=== PATIENT | female | born 1975 | race Asian ===

== ENCOUNTER 2017-12-24 14:07 | Emergency (ER) | payer OTHER ==
[~2017-12-24] VITALS: Ht 165.1 cm; Wt 63.6 kg
[~2017-12-24 14:07] MED LIST: ARIP10TA8 PO; METF-445 PO
[2017-12-24 14:38] LABS: GLUCOSE,POINT OF CARE 428 MG/DL (70-110)
[2017-12-24] MEDS ORDERED: SODIUM CHLORIDE 0.9% 1,000 ML IV ONE ×2 (14:45)
[2017-12-24 15:05] LABS: BASOPHILS % (AUTO) 0.9 % (0.0-2.0); EOSINOPHILS % (AUTO) 2.3 % (1.0-6.0); HEMATOCRIT 41.3 % (36-46); HEMOGLOBIN 14.2 g/dL (12.0-16.0); LYMPHOCYTES # (AUTO) 2.8 K/uL (1.0-4.8); LYMPHOCYTES % (AUTO) 27.2 % (22.0-44.0); MEAN CORPUSCULAR HEMOGLOBIN 28.4 pg (26.0-34.0); MEAN CORPUSCULAR HGB CONC 34.5 G/dL (31.0-37.0); MEAN CORPUSCULAR VOLUME 82 fL (80-100); MONOCYTES # (AUTO) 0.5 K/uL (0.1-1.0); MONOCYTES % (AUTO) 5.2 % (2.0-9.0); NEUTROPHILS # (AUTO) 6.6 K/uL (1.8-7.7); NEUTROPHILS % (AUTO) 64.4 % (40.0-70.0); PLATELET COUNT (AUTO) 343 K/uL (150-450); RED BLOOD CELL COUNT(AUTO) 5.01 MIL/uL (4.00-5.20); RED CELL DISTRIBUTION WIDTH 13.3 % (11.5-14.5)
[2017-12-24 15:27] LABS: LACTIC ACID 1.7 mmol/L (0.4-2.0)
[2017-12-24 15:41] LABS: ALANINE AMINOTRANSFERASE 14 U/L (12-78); ALBUMIN 3.1 g/dL (3.4-5.0); ALKALINE PHOSPHATASE 116 U/L (46-116); ANION GAP 7 mmol/L (8-16); ASPARTATE AMINOTRANSFERASE 12 U/L (15-37); BILIRUBIN,TOTAL 0.6 mg/dL (0.1-1.0); CALCIUM, TOTAL 8.7 mg/dL (8.8-10.5); CARBON DIOXIDE 26 mmol/L (22-29); CHLORIDE 96 mmol/L (98-107); CREATININE 0.82 mg/dL (0.60-1.30); GLOMERULAR FILTR. RATE CALC > 60 mL/min (>60); HCG,QUANTITATIVE < 1 mIU/mL (0-6); LIPASE 127 U/L (73-393); POTASSIUM 3.9 mmol/L (3.5-5.1); SODIUM SERUM 129 mmol/L (136-145); TOTAL PROTEIN, SERUM 7.9 g/dL (6.4-8.2); UREA NITROGEN, BLOOD 7 mg/dL (7-18)
[2017-12-24 15:44] LABS: GLUCOSE,RANDOM 401 mg/dL (70-110)
[2017-12-24 18:08] LABS: GLUCOSE,POINT OF CARE 229 MG/DL (70-110)
[2017-12-24 18:21] LABS: APPEARANCE,URINE CLOUDY (CLEAR); BILIRUBIN,URINE NEGATIVE (NEGATIVE); GLUCOSE, URINE (UA) >=1000 mg/dL (NEGATIVE); KETONES,URINE NEGATIVE (NEGATIVE); LEUKOCYTE ESTERASE ,URINE SMALL (NEGATIVE); NITRATE,URINE POSITIVE (NEGATIVE); OCCULT BLOOD,URINE TRACE (NEGATIVE); PH,URINE 5.5 (5.0-8.0); PROTEIN,URINE NEGATIVE (NEGATIVE); UROBILINOGEN,URINE 0.2 mg/dL (<=1.0)
[2017-12-24 18:44] LABS: BACTERIA,URINE Many /HPF (None Seen)
[2017-12-24 18:45] LABS: RBC,URINE 0-2 /HPF (0-2); SQUAMOUS EPITHELIAL CELL,UR Few /LPF (None Seen)
[2017-12-24] MEDS ORDERED: CeFAZolin 1 GM/DEXTROSE 50 ML IV ONE (19:00)
[2017-12-24 19:41] VITALS: BP 105/72
== END 2017-12-24 19:54 | disposition home or self-care (01) ==
LOC: EMS 14:08
DX: E11.65 Type 2 diabetes mellitus with hyperglycemia (principal); N39.0 Urinary tract infection, site not specified; I10 Essential (primary) hypertension; F31.9 Bipolar disorder, unspecified; F20.9 Schizophrenia, unspecified; F17.210 Nicotine dependence, cigarettes, uncomplicated; Z79.84 Long term (current) use of oral hypoglycemic drugs; Z79.899 Other long term (current) drug therapy
CPT/HCPCS: 36415; 80053; 81001; 82009; 82962; 83605; 83690; 84702; 85025; 87077; 87086; 87186; 93005; 96361; 96374; 99285; J0690; J7030

== ENCOUNTER 2018-12-17 22:15 | Emergency (ER) | payer OTHER ==
[~2018-12-17] VITALS: Ht 162.6 cm; Wt 63.1 kg
[2018-12-17] MEDS ORDERED: PROPARACAINE HCL 0.5% 15 ML OPHTHALMIC SOLUTION OU ONE (23:45)
[2018-12-17 23:52] LABS: BASOPHILS % (AUTO) 1.6 % (0.0-2.0); HEMATOCRIT 40.4 % (36-46); HEMOGLOBIN 13.5 g/dL (12.0-16.0); LYMPHOCYTES # (AUTO) 2.3 K/uL (1.0-4.8); LYMPHOCYTES % (AUTO) 28.3 % (22.0-44.0); MEAN CORPUSCULAR HEMOGLOBIN 27.7 pg (26.0-34.0); MEAN CORPUSCULAR HGB CONC 33.4 G/dL (31.0-37.0); MEAN CORPUSCULAR VOLUME 83 fL (80-100); MONOCYTES # (AUTO) 0.4 K/uL (0.1-1.0); MONOCYTES % (AUTO) 5.5 % (2.0-9.0); NEUTROPHILS % (AUTO) 62.6 % (40.0-70.0); PLATELET COUNT (AUTO) 423 K/uL (150-450); RED BLOOD CELL COUNT(AUTO) 4.87 MIL/uL (4.00-5.20); RED CELL DISTRIBUTION WIDTH 13.1 % (11.5-14.5)
[2018-12-18 00:20] LABS: ANION GAP 7 mmol/L (8-16); CARBON DIOXIDE 29 mmol/L (22-29); CHLORIDE 101 mmol/L (98-107); POTASSIUM 4.2 mmol/L (3.5-5.1); SODIUM SERUM 137 mmol/L (136-145)
[2018-12-18 00:22] LABS: ALANINE AMINOTRANSFERASE 9 U/L (12-78); ALKALINE PHOSPHATASE 116 U/L (46-116); ASPARTATE AMINOTRANSFERASE 10 U/L (15-37); BILIRUBIN,TOTAL 0.3 mg/dL (0.1-1.0); CALCIUM, TOTAL 8.6 mg/dL (8.8-10.5); CREATININE 0.66 mg/dL (0.60-1.30); GLOMERULAR FILTR. RATE CALC > 60 mL/min (>60); GLUCOSE,RANDOM 448 mg/dL (70-110); TOTAL PROTEIN, SERUM 7.4 g/dL (6.4-8.2); UREA NITROGEN, BLOOD 7 mg/dL (7-18)
[2018-12-18 00:23] LABS: ALBUMIN 2.8 g/dL (3.4-5.0)
[2018-12-18 00:30] LABS: HCG,QUANTITATIVE < 1 mIU/mL (0-6)
[2018-12-18] MEDS ORDERED: INSULIN REGULAR, HUMAN 100 UNITS/ML IVP ONE ×2 (00:30→03:30)
[2018-12-18] MEDS ORDERED: SODIUM CHLORIDE 0.9% 1,000 ML IV ONE ×2 (00:30→02:30)
[2018-12-18] MEDS ORDERED: FLUORESCEIN SODIUM 1 MG STRIP ONE (02:25)
[2018-12-18 03:31] LABS: GLUCOSE,POINT OF CARE 286 MG/DL (70-110)
[2018-12-18 03:31] LABS: GLUCOSE,POINT OF CARE 295 MG/DL (70-110)
[2018-12-18] MEDS ORDERED: CEPHALEXIN MONOHYDRATE 500 MG CAPSULE PO ONE (04:00)
[2018-12-18] MEDS ORDERED: ERYTHROMYCIN 0.5% 3.5 GM TUBE OPHTHALMIC OINTMENT OU ONE (04:00)
[2018-12-18] MEDS ORDERED: SULFAMETHOX/TRIMETH DS 800-160 MG/TABLET PO ONE (04:00)
[2018-12-18 04:07] LABS: GLUCOSE,POINT OF CARE 193 MG/DL (70-110)
[2018-12-18 04:09] VITALS: BP 105/70
== END 2018-12-18 04:20 | disposition home or self-care (01) ==
LOC: EMS 22:16
DX: H10.33 Unspecified acute conjunctivitis, bilateral (principal); H01.004 Unspecified blepharitis left upper eyelid; H01.001 Unspecified blepharitis right upper eyelid; E11.65 Type 2 diabetes mellitus with hyperglycemia; F20.9 Schizophrenia, unspecified; F17.210 Nicotine dependence, cigarettes, uncomplicated; F31.9 Bipolar disorder, unspecified
CPT/HCPCS: 36415; 80053; 82962; 84702; 85025; 96361; 96374; 96376; 99173; 99283; G0480; J1815; J7030

== ENCOUNTER 2019-08-10 09:43 | Inpatient (IN) | payer OTHER ==
[~2019-08-10] VITALS: Ht 162.6 cm; Wt 56.8 kg
[2019-08-10] MEDS ORDERED: DiphenhydrAMINE HCL 50 MG/ML VIAL IM ONE (11:30)
[2019-08-10] MEDS ORDERED: HALOPERIDOL LACTATE 5 MG/ML VIAL IM ONE (11:30)
[2019-08-10] MEDS ORDERED: LORazepam 2 MG/ML VIAL IM ONE (11:30)
[2019-08-10] MEDS ORDERED: ACETAMINOPHEN 325 MG TABLET PO PRN (12:45)
[2019-08-10] MEDS ORDERED: SODIUM CHLORIDE 0.9% 1,000 ML IV ONE (12:45)
[2019-08-10 13:36] LABS: BASOPHILS % (AUTO) 0.5 % (0.0-2.0); EOSINOPHILS % (AUTO) 1.8 % (1.0-6.0); HEMATOCRIT 35.2 % (36-46); HEMOGLOBIN 11.8 g/dL (12.0-16.0); LYMPHOCYTES # (AUTO) 2.2 K/uL (1.0-4.8); LYMPHOCYTES % (AUTO) 16.6 % (22.0-44.0); MEAN CORPUSCULAR HEMOGLOBIN 27.5 pg (26.0-34.0); MEAN CORPUSCULAR HGB CONC 33.7 G/dL (31.0-37.0); MEAN CORPUSCULAR VOLUME 82 fL (80-100); MONOCYTES # (AUTO) 0.7 K/uL (0.1-1.0); MONOCYTES % (AUTO) 5.4 % (2.0-9.0); NEUTROPHILS # (AUTO) 10.1 K/uL (1.8-7.7); NEUTROPHILS % (AUTO) 75.7 % (40.0-70.0); PLATELET COUNT (AUTO) 313 K/uL (150-450); RED BLOOD CELL COUNT(AUTO) 4.31 MIL/uL (4.00-5.20); RED CELL DISTRIBUTION WIDTH 14.6 % (11.5-14.5)
[2019-08-10 13:52] LABS: ANION GAP 7 mmol/L (8-16); CALCIUM, TOTAL 8.4 mg/dL (8.8-10.5); CARBON DIOXIDE 26 mmol/L (22-29); CHLORIDE 103 mmol/L (98-107); CREATININE 0.73 mg/dL (0.60-1.30); GLOMERULAR FILTR. RATE CALC > 60 mL/min (>60); GLUCOSE,RANDOM 221 mg/dL (70-110); POTASSIUM 3.8 mmol/L (3.5-5.1); SODIUM SERUM 136 mmol/L (136-145); UREA NITROGEN, BLOOD 5 mg/dL (7-18)
[2019-08-10 14:30] LABS: ALANINE AMINOTRANSFERASE 14 U/L (12-78); ALBUMIN 2.9 g/dL (3.4-5.0); ALKALINE PHOSPHATASE 95 U/L (46-116); ASPARTATE AMINOTRANSFERASE 13 U/L (15-37); BILIRUBIN,TOTAL 0.5 mg/dL (0.1-1.0); HCG,QUANTITATIVE < 1 mIU/mL (0-6); THYROID STIMULATING HORMONE 0.91 uIU/mL (0.36-3.74); TOTAL PROTEIN, SERUM 7.7 g/dL (6.4-8.2)
[2019-08-10] MEDS: HEPARIN SODIUM,PORCINE 5,000 UNITS/ML VIAL SQ SCH (15:54)
[2019-08-10] MEDS ORDERED: DEXTROSE 50%-WATER 25 GM/50 ML SYRINGE IVP PRN (18:45)
[2019-08-10 18:51] LABS: AMPHET/METH SCREEN,URINE POSITIVE (NEGATIVE); APPEARANCE,URINE CLEAR (CLEAR); BARBITURATE SCREEN, URINE NEGATIVE (NEGATIVE); BENZODIAZEPINES SCREEN,URINE NEGATIVE (NEGATIVE); BILIRUBIN,URINE NEGATIVE (NEGATIVE); CANNABINOID SCREEN,URINE NEGATIVE (NEGATIVE); COCAINE SCREEN,URINE NEGATIVE (NEGATIVE); GLUCOSE, URINE (UA) NEGATIVE (NEGATIVE); KETONES,URINE NEGATIVE (NEGATIVE); LEUKOCYTE ESTERASE ,URINE MODERATE (NEGATIVE); METHADONE SCREEN, URINE NEGATIVE (NEGATIVE); NITRATE,URINE NEGATIVE (NEGATIVE); OCCULT BLOOD,URINE LARGE (NEGATIVE); OPIATE SCREEN,URINE NEGATIVE (NEGATIVE); PH,URINE 6.5 (5.0-8.0); PROTEIN,URINE NEGATIVE (NEGATIVE)
[2019-08-10 18:52] LABS: PHENCYCLIDINE SCREEN,URINE NEGATIVE (NEGATIVE)
[2019-08-10 19:08] LABS: BACTERIA,URINE Moderate /HPF (None Seen); SQUAMOUS EPITHELIAL CELL,UR Moderate /LPF (None Seen)
[2019-08-10] MEDS: DOCUSATE SODIUM 100 MG CAPSULE PO SCH (21:00)
[2019-08-11] MEDS: HEPARIN SODIUM,PORCINE 5,000 UNITS/ML VIAL SQ SCH ×3 (00:24→16:00)
[2019-08-11 01:57] VITALS: BP 138/68
[2019-08-11 04:40] LABS: GLUCOMETER DEV NAME(LOC) 6S.1; GLUCOSE,POINT OF CARE 102 MG/DL (70-110)
[2019-08-11] MEDS: INSULIN LISPRO 100 UNITS/ML SQ PRN ×2 (06:07→21:29)
[2019-08-11] MEDS: DOCUSATE SODIUM 100 MG CAPSULE PO SCH ×2 (08:27→20:25)
[2019-08-11] MEDS: FAMOTIDINE 20 MG TABLET PO SCH (08:27)
[2019-08-11] MEDS ORDERED: SODIUM CHLORIDE 0.9% 1,000 ML ONE (11:05)
[2019-08-11] MEDS: CefTRIAXone 1 GM/DEXTROSE 50 ML IV SCH (11:19)
[2019-08-11 16:17] VITALS: BP 102/58
[2019-08-11 18:35] LABS: GLUCOMETER DEV NAME(LOC) 6N.2; GLUCOSE,POINT OF CARE 131 MG/DL (70-110)
[2019-08-11 20:01] LABS: GLUCOMETER DEV NAME(LOC) 6S.1; GLUCOSE,POINT OF CARE 144 MG/DL (70-110)
[2019-08-11 20:30] VITALS: BP 83/54
[2019-08-11] MEDS ORDERED: ALBUMIN HUMAN 25%-25GM/100ML 100 ML IV PRN ×2 (20:45→21:00)
[2019-08-11] MEDS ORDERED: SODIUM CHLORIDE 0.9% 250 ML IV ONE (21:00)
[2019-08-12] VITALS: BP 94/53
[2019-08-12] MEDS: HEPARIN SODIUM,PORCINE 5,000 UNITS/ML VIAL SQ SCH ×3 (00:14→18:08)
[2019-08-12 04:45] VITALS: BP 95/57
[2019-08-12 06:06] LABS: GLUCOMETER DEV NAME(LOC) 6N.2; GLUCOSE,POINT OF CARE 220 MG/DL (70-110)
[2019-08-12] MEDS: INSULIN LISPRO 100 UNITS/ML SQ PRN ×3 (06:06→18:11)
[2019-08-12 06:18] LABS: GLUCOMETER DEV NAME(LOC) 6S.1; GLUCOSE,POINT OF CARE 155 MG/DL (70-110)
[2019-08-12 08:17] VITALS: BP 91/61
[2019-08-12] MEDS: FAMOTIDINE 20 MG TABLET PO SCH (09:14)
[2019-08-12] MEDS: DOCUSATE SODIUM 100 MG CAPSULE PO SCH ×2 (09:14→20:37)
[2019-08-12] MEDS: CefTRIAXone 1 GM/DEXTROSE 50 ML IV SCH (09:19)
[2019-08-12 12:53] VITALS: BP 108/67
[2019-08-12 15:17] LABS: BASOPHILS % (AUTO) 0.8 % (0.0-2.0); EOSINOPHILS % (AUTO) 4.6 % (1.0-6.0); HEMATOCRIT 36.4 % (36-46); HEMOGLOBIN 12.5 g/dL (12.0-16.0); LYMPHOCYTES # (AUTO) 2.2 K/uL (1.0-4.8); LYMPHOCYTES % (AUTO) 45.9 % (22.0-44.0); MEAN CORPUSCULAR HEMOGLOBIN 27.8 pg (26.0-34.0); MEAN CORPUSCULAR HGB CONC 34.3 G/dL (31.0-37.0); MEAN CORPUSCULAR VOLUME 81 fL (80-100); MONOCYTES # (AUTO) 0.4 K/uL (0.1-1.0); MONOCYTES % (AUTO) 8.1 % (2.0-9.0); NEUTROPHILS % (AUTO) 40.6 % (40.0-70.0); PLATELET COUNT (AUTO) 393 K/uL (150-450); RED BLOOD CELL COUNT(AUTO) 4.49 MIL/uL (4.00-5.20); RED CELL DISTRIBUTION WIDTH 14.2 % (11.5-14.5)
[2019-08-12 15:20] LABS: ANION GAP 7 mmol/L (8-16); CALCIUM, TOTAL 8.9 mg/dL (8.8-10.5); CARBON DIOXIDE 31 mmol/L (22-29); CHLORIDE 103 mmol/L (98-107); GLOMERULAR FILTR. RATE CALC > 60 mL/min (>60); GLUCOSE,RANDOM 104 mg/dL (70-110); POTASSIUM 4.1 mmol/L (3.5-5.1); SODIUM SERUM 141 mmol/L (136-145); UREA NITROGEN, BLOOD 6 mg/dL (7-18)
[2019-08-12 16:41] VITALS: BP 104/62
[2019-08-12 20:14] LABS: GLUCOMETER DEV NAME(LOC) 6N.2; GLUCOSE,POINT OF CARE 202 MG/DL (70-110)
[2019-08-12] MEDS: RisperiDONE 2 MG TABLET PO SCH (20:38)
[2019-08-12 21:00] VITALS: BP 91/67
[2019-08-13] MEDS: HEPARIN SODIUM,PORCINE 5,000 UNITS/ML VIAL SQ SCH ×2 (00:17→09:21)
[2019-08-13 01:19] VITALS: BP 100/65
[2019-08-13 04:00] VITALS: BP 105/64
[2019-08-13] MEDS: INSULIN LISPRO 100 UNITS/ML SQ PRN ×2 (05:45→12:18)
[2019-08-13 07:53] LABS: GLUCOMETER DEV NAME(LOC) 6S.1; GLUCOSE,POINT OF CARE 170 MG/DL (70-110)
[2019-08-13 07:53] LABS: GLUCOMETER DEV NAME(LOC) 6S.1; GLUCOSE,POINT OF CARE 153 MG/DL (70-110)
[2019-08-13 07:53] LABS: GLUCOMETER DEV NAME(LOC) 6S.1; GLUCOSE,POINT OF CARE 126 MG/DL (70-110)
[2019-08-13 07:58] VITALS: BP 91/58
[2019-08-13] MEDS ORDERED: METF-960 PO (08:17)
[2019-08-13] MEDS: RisperiDONE 2 MG TABLET PO SCH (09:21)
[2019-08-13] MEDS: DOCUSATE SODIUM 100 MG CAPSULE PO SCH (09:21)
[2019-08-13] MEDS: FAMOTIDINE 20 MG TABLET PO SCH (09:21)
[2019-08-13] MEDS: CefTRIAXone 1 GM/DEXTROSE 50 ML IV SCH (09:25)
[2019-08-13] MEDS ORDERED: RISP3TAB14 PO (11:03)
[2019-08-13] MEDS ORDERED: RISP2TAB23 PO ×2 (11:03→11:39)
[2019-08-13 18:55] LABS: GLUCOMETER DEV NAME(LOC) 6N.2; GLUCOSE,POINT OF CARE 151 MG/DL (70-110)
== END 2019-08-13 14:50 | disposition home or self-care (01) | DRG 52 ==
LOC: EMS 09:59 → 6N 12:42
PROVIDERS: ADMIT Internal Medicine; ATTEND Internal Medicine
DX: G92 Toxic encephalopathy (principal); E43 Unspecified severe protein-calorie malnutrition; N39.0 Urinary tract infection, site not specified; Z68.21 Body mass index [BMI] 21.0-21.9, adult; F19.10 Other psychoactive substance abuse, uncomplicated; F17.210 Nicotine dependence, cigarettes, uncomplicated; F20.9 Schizophrenia, unspecified; E11.9 Type 2 diabetes mellitus without complications; Z20.828 Contact with and (suspected) exposure to other viral communicable diseases; Z83.3 Family history of diabetes mellitus
CPT/HCPCS: 84443; 87086; 97162; 97166; 97530; 97535; G0480; J0696; J1200; J1630; J1644; J2060; J7030

== ENCOUNTER 2020-05-17 12:24 | Emergency (ER) | payer OTHER ==
[~2020-05-17] VITALS: Ht 152.4 cm; Wt 73.2 kg
[~2020-05-17 12:24] MED LIST changes: -ARIP10TA8 PO; -METF-445 PO; +METF-960 PO; +RISP2TAB45 PO
[2020-05-17] MEDS ORDERED: ARIP10TA8 PO (12:37)
[2020-05-17] MEDS ORDERED: ATOR20TA86 PO (12:37)
[2020-05-17 13:19] LABS: COVID AG,FIA SOURCE NASAL SWAB
[2020-05-17 13:52] LABS: BASOPHILS % (AUTO) 0.6 % (0.0-2.0); EOSINOPHILS % (AUTO) 3.5 % (1.0-6.0); HEMATOCRIT 39.4 % (36-46); HEMOGLOBIN 13.1 g/dL (12.0-16.0); LYMPHOCYTES # (AUTO) 3.1 K/uL (1.0-4.8); LYMPHOCYTES % (AUTO) 28.8 % (22.0-44.0); MEAN CORPUSCULAR HEMOGLOBIN 28.1 pg (26.0-34.0); MEAN CORPUSCULAR HGB CONC 33.2 G/dL (31.0-37.0); MEAN CORPUSCULAR VOLUME 85 fL (80-100); MONOCYTES # (AUTO) 0.6 K/uL (0.1-1.0); MONOCYTES % (AUTO) 5.3 % (2.0-9.0); NEUTROPHILS # (AUTO) 6.7 K/uL (1.8-7.7); NEUTROPHILS % (AUTO) 61.8 % (40.0-70.0); PLATELET COUNT (AUTO) 339 K/uL (150-450); RED BLOOD CELL COUNT(AUTO) 4.65 MIL/uL (4.00-5.20); RED CELL DISTRIBUTION WIDTH 14.2 % (11.5-14.5)
[2020-05-17 14:15] LABS: ALANINE AMINOTRANSFERASE 14 U/L (12-78); ALBUMIN 3.3 g/dL (3.4-5.0); ALKALINE PHOSPHATASE 86 U/L (46-116); ANION GAP 10 mmol/L (8-16); ASPARTATE AMINOTRANSFERASE 9 U/L (15-37); BILIRUBIN,TOTAL 0.2 mg/dL (0.1-1.0); CALCIUM, TOTAL 8.8 mg/dL (8.8-10.5); CARBON DIOXIDE 25 mmol/L (22-29); CHLORIDE 100 mmol/L (98-107); GLOMERULAR FILTR. RATE CALC > 60 mL/min (>60); GLUCOSE,RANDOM 273 mg/dL (70-110); HCG,QUANTITATIVE < 1 mIU/mL (0-6); SODIUM SERUM 135 mmol/L (136-145); TOTAL PROTEIN, SERUM 7.6 g/dL (6.4-8.2); UREA NITROGEN, BLOOD 12 mg/dL (7-18)
[2020-05-17] MEDS ORDERED: RisperiDONE 1 MG TABLET PO ONE (14:45)
[2020-05-17 15:14] VITALS: BP 134/84
[2020-05-17 15:30] LABS: AMPHET/METH SCREEN,URINE NEGATIVE (NEGATIVE); BARBITURATE SCREEN, URINE NEGATIVE (NEGATIVE); BENZODIAZEPINES SCREEN,URINE NEGATIVE (NEGATIVE); CANNABINOID SCREEN,URINE NEGATIVE (NEGATIVE); COCAINE SCREEN,URINE NEGATIVE (NEGATIVE); METHADONE SCREEN, URINE NEGATIVE (NEGATIVE); OPIATE SCREEN,URINE NEGATIVE (NEGATIVE)
[2020-05-17 15:32] LABS: PHENCYCLIDINE SCREEN,URINE NEGATIVE (NEGATIVE)
== END 2020-05-17 15:31 | disposition home or self-care (01) ==
LOC: EMS 12:30
DX: F20.9 Schizophrenia, unspecified (principal); F31.9 Bipolar disorder, unspecified; E11.9 Type 2 diabetes mellitus without complications; E78.00 Pure hypercholesterolemia, unspecified; F17.210 Nicotine dependence, cigarettes, uncomplicated; F19.90 Other psychoactive substance use, unspecified, uncomplicated; Z20.822 Contact with and (suspected) exposure to COVID-19; Z79.84 Long term (current) use of oral hypoglycemic drugs
CPT/HCPCS: 36415; 80053; 80307; 82962; 84702; 85025; 87426; 99283; G0480

== ENCOUNTER 2020-10-04 14:04 | Emergency (ER) | payer OTHER ==
[~2020-10-04] VITALS: Ht 165.1 cm; Wt 63.6 kg
[~2020-10-04 14:04] MED LIST changes: +ARIP10TA38 PO; +ATOR20TA86 PO; -RISP2TAB45 PO
[2020-10-04 14:06] VITALS: BP 108/56
== END 2020-10-04 16:13 | disposition home or self-care (01) ==
LOC: EMS 14:09
DX: L90.5 Scar conditions and fibrosis of skin (principal); F31.9 Bipolar disorder, unspecified; E11.9 Type 2 diabetes mellitus without complications; E78.00 Pure hypercholesterolemia, unspecified; F20.9 Schizophrenia, unspecified; F17.210 Nicotine dependence, cigarettes, uncomplicated; F19.90 Other psychoactive substance use, unspecified, uncomplicated
CPT/HCPCS: 99281; Z7502

== ENCOUNTER 2020-11-13 09:29 | Emergency (ER) | payer OTHER ==
[~2020-11-13] VITALS: Ht 154.9 cm; Wt 63.6 kg
[2020-11-13 14:20] LABS: BASOPHILS % (AUTO) 0.7 % (0.0-2.0); EOSINOPHILS % (AUTO) 4.1 % (1.0-6.0); HEMATOCRIT 41.5 % (36-46); HEMOGLOBIN 13.4 g/dL (12.0-16.0); LYMPHOCYTES # (AUTO) 1.3 K/uL (1.0-4.8); LYMPHOCYTES % (AUTO) 21.6 % (22.0-44.0); MEAN CORPUSCULAR HEMOGLOBIN 27.4 pg (26.0-34.0); MEAN CORPUSCULAR HGB CONC 32.3 G/dL (31.0-37.0); MEAN CORPUSCULAR VOLUME 85 fL (80-100); MONOCYTES # (AUTO) 0.7 K/uL (0.1-1.0); MONOCYTES % (AUTO) 11.2 % (2.0-9.0); NEUTROPHILS # (AUTO) 3.9 K/uL (1.8-7.7); NEUTROPHILS % (AUTO) 62.4 % (40.0-70.0); PLATELET COUNT (AUTO) 318 K/uL (150-450); RED BLOOD CELL COUNT(AUTO) 4.89 MIL/uL (4.00-5.20); RED CELL DISTRIBUTION WIDTH 13.5 % (11.5-14.5)
[2020-11-13 14:25] LABS: ANION GAP 8 mmol/L (8-16); CALCIUM, TOTAL 8.3 mg/dL (8.8-10.5); CARBON DIOXIDE 30 mmol/L (22-29); CHLORIDE 98 mmol/L (98-107); CREATININE 0.68 mg/dL (0.60-1.30); GLOMERULAR FILTR. RATE CALC > 60 mL/min (>60); GLUCOSE,RANDOM 285 mg/dL (70-110); POTASSIUM 4.1 mmol/L (3.5-5.1); SODIUM SERUM 136 mmol/L (136-145); UREA NITROGEN, BLOOD 10 mg/dL (7-18)
[2020-11-13 14:30] LABS: ALANINE AMINOTRANSFERASE 18 U/L (12-78); ALKALINE PHOSPHATASE 108 U/L (46-116); ASPARTATE AMINOTRANSFERASE 9 U/L (15-37); BILIRUBIN,TOTAL 0.4 mg/dL (0.1-1.0); TOTAL PROTEIN, SERUM 7.8 g/dL (6.4-8.2)
[2020-11-13 15:03] LABS: COVID AG,FIA SOURCE NASOPHARYNGEAL
[2020-11-13 16:39] VITALS: BP 110/69
== END 2020-11-13 16:41 | disposition home or self-care (01) ==
LOC: EMS 09:31
DX: J40 Bronchitis, not specified as acute or chronic (principal); F17.210 Nicotine dependence, cigarettes, uncomplicated; E11.9 Type 2 diabetes mellitus without complications; F31.9 Bipolar disorder, unspecified; E78.00 Pure hypercholesterolemia, unspecified; F20.9 Schizophrenia, unspecified; Z20.822 Contact with and (suspected) exposure to COVID-19; Z79.84 Long term (current) use of oral hypoglycemic drugs
CPT/HCPCS: 71045; 80053; 82962; 85025; 99284; 36415-L1; 36415-TC

== ENCOUNTER 2020-11-23 13:25 | Emergency (ER) | payer OTHER ==
[~2020-11-23] VITALS: Ht 165.1 cm; Wt 75.5 kg
[2020-11-23 13:33] VITALS: BP 114/68
[2020-11-23] MEDS ORDERED: INSULIN REGULAR, HUMAN 100 UNITS/ML SQ ONE (14:30)
[2020-11-23] MEDS ORDERED: ACETAMINOPHEN 500 MG TABLET PO ONE (14:30)
[2020-11-23] MEDS ORDERED: GuaiFENesin/D-METHORPHAN [SUGAR-FREE] 200-20MG/10 ML SYRUP UDCUP PO ONE (14:30)
[2020-11-23 14:50] LABS: BASOPHILS % (AUTO) 0.6 % (0.0-2.0); EOSINOPHILS % (AUTO) 1.6 % (1.0-6.0); HEMATOCRIT 42.6 % (36-46); HEMOGLOBIN 13.6 g/dL (12.0-16.0); LYMPHOCYTES # (AUTO) 2.3 K/uL (1.0-4.8); LYMPHOCYTES % (AUTO) 20.4 % (22.0-44.0); MEAN CORPUSCULAR HEMOGLOBIN 27.3 pg (26.0-34.0); MEAN CORPUSCULAR VOLUME 85 fL (80-100); MONOCYTES # (AUTO) 0.8 K/uL (0.1-1.0); MONOCYTES % (AUTO) 7.2 % (2.0-9.0); NEUTROPHILS % (AUTO) 70.2 % (40.0-70.0); PLATELET COUNT (AUTO) 450 K/uL (150-450); RED BLOOD CELL COUNT(AUTO) 4.99 MIL/uL (4.00-5.20); RED CELL DISTRIBUTION WIDTH 13.7 % (11.5-14.5)
[2020-11-23 15:07] LABS: ALANINE AMINOTRANSFERASE 12 U/L (12-78); ALBUMIN 2.9 g/dL (3.4-5.0); ALKALINE PHOSPHATASE 133 U/L (46-116); ANION GAP 10 mmol/L (8-16); ASPARTATE AMINOTRANSFERASE 6 U/L (15-37); BILIRUBIN,TOTAL 0.3 mg/dL (0.1-1.0); CALCIUM, TOTAL 8.7 mg/dL (8.8-10.5); CARBON DIOXIDE 28 mmol/L (22-29); CHLORIDE 95 mmol/L (98-107); CREATININE 0.94 mg/dL (0.60-1.30); GLOMERULAR FILTR. RATE CALC > 60 mL/min (>60); LIPASE 107 U/L (73-393); POTASSIUM 4.2 mmol/L (3.5-5.1); SODIUM SERUM 133 mmol/L (136-145); TOTAL PROTEIN, SERUM 8.7 g/dL (6.4-8.2); UREA NITROGEN, BLOOD 8 mg/dL (7-18)
[2020-11-23 15:22] LABS: GLUCOSE,RANDOM 505 mg/dL (70-110)
[2020-11-23 15:59] LABS: COVID AG,FIA SOURCE NASOPHARYNGEAL
[2020-11-23 16:04] LABS: GLUCOSE,POINT OF CARE 393 MG/DL (70-110)
== END 2020-11-23 17:13 | disposition home or self-care (01) ==
LOC: EMS 13:27
DX: E11.65 Type 2 diabetes mellitus with hyperglycemia (principal); F20.0 Paranoid schizophrenia; J40 Bronchitis, not specified as acute or chronic; F17.210 Nicotine dependence, cigarettes, uncomplicated; E78.00 Pure hypercholesterolemia, unspecified; Z79.84 Long term (current) use of oral hypoglycemic drugs; Z79.899 Other long term (current) drug therapy; Z20.822 Contact with and (suspected) exposure to COVID-19
CPT/HCPCS: 36415; 80053; 82962; 83690; 84703; 85025; 87426; 96372; 99283; J1815

== ENCOUNTER 2021-06-05 16:27 | Emergency (ER) | payer OTHER ==
[~2021-06-05] VITALS: Ht 162.6 cm; Wt 45.5 kg
[~2021-06-05 16:27] MED LIST changes: +METF-1211 PO; -METF-960 PO
[2021-06-05] MEDS ORDERED: HALO2 PO (16:53)
[2021-06-05] MEDS ORDERED: PROPARACAINE HCL 0.5% 15 ML OPHTHALMIC SOLUTION OU ONE (17:15)
[2021-06-05] MEDS ORDERED: FLUORESCEIN SODIUM 1 MG STRIP OU ONE (17:15)
[2021-06-05] MEDS ORDERED: CEPH-558 PO (18:25)
[2021-06-05] MEDS ORDERED: ERYTHROMYCIN 0.5% 3.5 GM TUBE OPHTHALMIC OINTMENT OD ONE (18:30)
[2021-06-05 19:30] VITALS: BP 99/71
== END 2021-06-05 19:59 | disposition home or self-care (01) ==
LOC: EMS 16:29
DX: T26.01XA Burn of right eyelid and periocular area, initial encounter (principal); F25.9 Schizoaffective disorder, unspecified; F31.9 Bipolar disorder, unspecified; E11.9 Type 2 diabetes mellitus without complications; E78.00 Pure hypercholesterolemia, unspecified; N15.9 Renal tubulo-interstitial disease, unspecified; F17.210 Nicotine dependence, cigarettes, uncomplicated; F15.90 Other stimulant use, unspecified, uncomplicated; T31.0 Burns involving less than 10% of body surface; X08.8XXA Exposure to other specified smoke, fire and flames, initial encounter; Y93.89 Activity, other specified; Y92.89 Other specified places as the place of occurrence of the external cause; Y99.8 Other external cause status
CPT/HCPCS: 16000; 82962; 99283

== ENCOUNTER 2022-05-24 11:48 | Emergency (ER) | payer MEDICAID, OTHER ==
[~2022-05-24] VITALS: Ht 154.9 cm; Wt 54.1 kg
[~2022-05-24 11:48] MED LIST changes: -ARIP10TA38 PO; -ATOR20TA86 PO; +OLAN5TAB52 PO
[2022-05-24] MEDS ORDERED: INSULIN REGULAR, HUMAN 100 UNITS/ML IVP ONE (13:45)
[2022-05-24] MEDS ORDERED: SODIUM CHLORIDE 0.9% 1,000 ML IV ONE (13:45)
[2022-05-24 13:46] LABS: GLUCOSE,POINT OF CARE 298 MG/DL (70-110)
[2022-05-24] MEDS ORDERED: OLANZapine 5 MG RAPDIS TABLET PO ONE (14:00)
[2022-05-24 14:14] LABS: EOSINOPHILS % (AUTO) 6.7 % (1.0-6.0); HEMATOCRIT 37.5 % (36-46); HEMOGLOBIN 12.5 g/dL (12.0-16.0); LYMPHOCYTES # (AUTO) 2.4 K/uL (1.0-4.8); LYMPHOCYTES % (AUTO) 36.7 % (22.0-44.0); MEAN CORPUSCULAR HEMOGLOBIN 27.7 pg (26.0-34.0); MEAN CORPUSCULAR HGB CONC 33.2 G/dL (31.0-37.0); MEAN CORPUSCULAR VOLUME 83 fL (80-100); MONOCYTES # (AUTO) 0.3 K/uL (0.1-1.0); MONOCYTES % (AUTO) 4.3 % (2.0-9.0); NEUTROPHILS # (AUTO) 3.4 K/uL (1.8-7.7); NEUTROPHILS % (AUTO) 51.3 % (40.0-70.0); PLATELET COUNT (AUTO) 367 K/uL (150-450); RED CELL DISTRIBUTION WIDTH 14.2 % (11.5-14.5)
[2022-05-24 14:25] LABS: ANION GAP 5 mmol/L (8-16); CALCIUM, TOTAL 8.4 mg/dL (8.8-10.5); CARBON DIOXIDE 31 mmol/L (22-29); CHLORIDE 98 mmol/L (98-107); CREATININE 0.67 mg/dL (0.60-1.30); GLOMERULAR FILTR. RATE CALC > 60 mL/min (>60); GLUCOSE,RANDOM 325 mg/dL (70-110); POTASSIUM 3.8 mmol/L (3.5-5.1); SODIUM SERUM 134 mmol/L (136-145); UREA NITROGEN, BLOOD 11 mg/dL (7-18)
[2022-05-24 14:28] LABS: COVID AG,FIA SOURCE NASOPHARYNGEAL
[2022-05-24 14:37] LABS: ALANINE AMINOTRANSFERASE 8 U/L (12-78); ALBUMIN 2.9 g/dL (3.4-5.0); ALKALINE PHOSPHATASE 82 U/L (46-116); ASPARTATE AMINOTRANSFERASE 11 U/L (15-37); BILIRUBIN,TOTAL 0.2 mg/dL (0.1-1.0); HCG,QUANTITATIVE < 1 mIU/mL (0-6)
[2022-05-24 16:10] LABS: GLUCOSE,POINT OF CARE 250 MG/DL (70-110)
[2022-05-24 16:34] VITALS: BP 121/81
== END 2022-05-24 16:57 | disposition home or self-care (01) ==
LOC: EMS 11:52
DX: F20.9 Schizophrenia, unspecified (principal); F19.10 Other psychoactive substance abuse, uncomplicated; F31.9 Bipolar disorder, unspecified; E11.9 Type 2 diabetes mellitus without complications; E78.00 Pure hypercholesterolemia, unspecified; F17.210 Nicotine dependence, cigarettes, uncomplicated; F15.90 Other stimulant use, unspecified, uncomplicated; Z20.822 Contact with and (suspected) exposure to COVID-19
CPT/HCPCS: 99284; 96360; 87426; 80053; 84702; 85025; 82962; G0480; J7030

== ENCOUNTER 2022-06-25 09:41 | Inpatient (IN) | payer MEDICAID ==
[~2022-06-25] VITALS: Ht 165.1 cm; Wt 60.4 kg
[2022-06-25] MEDS ORDERED: LORazepam 2 MG/ML VIAL IM ONE ×2 (11:15→14:30)
[2022-06-25] MEDS ORDERED: DiphenhydrAMINE HCL 50 MG/ML VIAL IM ONE (11:15)
[2022-06-25] MEDS ORDERED: HALOPERIDOL LACTATE 5 MG/ML VIAL IM ONE ×2 (11:15→14:30)
[2022-06-25 12:05] VITALS: BP 129/81
[2022-06-25 12:24] VITALS: BP 129/81
[2022-06-25 12:46] LABS: GLUCOMETER DEV NAME(LOC) BV3S.; GLUCOSE,POINT OF CARE 398 MG/DL (70-110)
[2022-06-25] MEDS ORDERED: PNEUMOCOCCAL VACCINE POLYVALENT 0.5 ML VIAL [PPSV23] IM. ONE (14:45)
[2022-06-25] MEDS ORDERED: GLUCAGON,HUMAN RECOMBINANT 1 MG VIAL IM PRN ×3 (15:45)
[2022-06-25] MEDS ORDERED: INSULIN LISPRO 100 UNITS/ML SQ PRN ×2 (15:45)
[2022-06-25] MEDS: INSULIN LISPRO 100 UNITS/ML SQ PRN (16:24)
[2022-06-25 16:45] LABS: GLUCOMETER DEV NAME(LOC) BV3S.; GLUCOSE,POINT OF CARE 183 MG/DL (70-110)
[2022-06-25] MEDS ORDERED: BACITRACIN 28 GM OINTMENT TP PRN (16:45)
[2022-06-25] MEDS ORDERED: DOCUSATE SODIUM 100 MG CAPSULE PO PRN (16:45)
[2022-06-25] MEDS ORDERED: ACETAMINOPHEN 325 MG TABLET PO PRN (16:45)
[2022-06-25] MEDS ORDERED: OMEPRAZOLE 20 MG CAPSULE PO PRN (16:45)
[2022-06-25] MEDS ORDERED: CloNIDine HCL 0.1 MG TABLET PO PRN (16:45)
[2022-06-25] MEDS ORDERED: PETROLATUM,WHITE 28 GM JELLY TP PRN (16:45)
[2022-06-25] MEDS ORDERED: ALBUTEROL SULFATE HFA 90 MCG/PUFF 8 GM INHALER IH PRN (16:45)
[2022-06-25] MEDS ORDERED: MAGNESIUM HYDROXIDE SUSPENSION 30 ML UDCUP PO PRN (16:45)
[2022-06-25] MEDS ORDERED: ONDANSETRON HCL 4 MG TABLET PO PRN (16:45)
[2022-06-25] MEDS ORDERED: MAG HYDROX/AL HYDROX/SIMETH ES 30 ML SUSPENSION UDCUP PO PRN (16:45)
[2022-06-25] MEDS: MetFORMIN HCL 500 MG TABLET PO SCH (17:00)
[2022-06-25 17:07] VITALS: BP 102/63
[2022-06-25] MEDS: INSULIN GLARGINE,HUM.REC.ANLOG 100 UNITS/ML SQ SCH (21:00)
[2022-06-25 21:31] LABS: GLUCOMETER DEV NAME(LOC) POC.BV
[2022-06-26] MEDS: MetFORMIN HCL 500 MG TABLET PO SCH ×2 (06:40→16:20)
[2022-06-26] MEDS: INSULIN LISPRO 100 UNITS/ML SQ PRN ×3 (06:47→21:34)
[2022-06-26 06:51] LABS: GLUCOMETER DEV NAME(LOC) BV3S.; GLUCOSE,POINT OF CARE 180 MG/DL (70-110)
[2022-06-26 11:46] LABS: GLUCOMETER DEV NAME(LOC) BV3S.; GLUCOSE,POINT OF CARE 134 MG/DL (70-110)
[2022-06-26 17:16] LABS: GLUCOMETER DEV NAME(LOC) BV3S.; GLUCOSE,POINT OF CARE 183 MG/DL (70-110)
[2022-06-26 20:21] VITALS: BP 100/63
[2022-06-26] MEDS: BENZTROPINE MESYLATE 2 MG TABLET PO SCH (21:22)
[2022-06-26] MEDS: HALOPERIDOL 10 MG TABLET PO SCH (21:22)
[2022-06-26] MEDS: INSULIN GLARGINE,HUM.REC.ANLOG 100 UNITS/ML SQ SCH (21:36)
[2022-06-26 22:06] LABS: GLUCOMETER DEV NAME(LOC) BV3S.; GLUCOSE,POINT OF CARE 171 MG/DL (70-110)
[2022-06-27] MEDS: MetFORMIN HCL 500 MG TABLET PO SCH ×2 (06:35→16:21)
[2022-06-27] MEDS: INSULIN LISPRO 100 UNITS/ML SQ PRN ×4 (06:42→21:20)
[2022-06-27 07:01] LABS: GLUCOMETER DEV NAME(LOC) BV3S.; GLUCOSE,POINT OF CARE 153 MG/DL (70-110)
[2022-06-27 07:20] LABS: BASOPHILS % (AUTO) 0.6 % (0.0-2.0); EOSINOPHILS % (AUTO) 4.4 % (1.0-6.0); HEMATOCRIT 38.2 % (36-46); HEMOGLOBIN 12.6 g/dL (12.0-16.0); LYMPHOCYTES # (AUTO) 1.9 K/uL (1.0-4.8); LYMPHOCYTES % (AUTO) 20.3 % (22.0-44.0); MEAN CORPUSCULAR HEMOGLOBIN 28.1 pg (26.0-34.0); MEAN CORPUSCULAR HGB CONC 32.9 G/dL (31.0-37.0); MEAN CORPUSCULAR VOLUME 86 fL (80-100); MONOCYTES # (AUTO) 1.3 K/uL (0.1-1.0); MONOCYTES % (AUTO) 13.8 % (2.0-9.0); NEUTROPHILS # (AUTO) 5.7 K/uL (1.8-7.7); NEUTROPHILS % (AUTO) 60.9 % (40.0-70.0); PLATELET COUNT (AUTO) 330 K/uL (150-450); RED BLOOD CELL COUNT(AUTO) 4.46 MIL/uL (4.00-5.20); RED CELL DISTRIBUTION WIDTH 14.9 % (11.5-14.5)
[2022-06-27 07:46] LABS: HEMOGLOBIN A1C 9.1 % (3.8-5.6)
[2022-06-27 07:57] LABS: ALANINE AMINOTRANSFERASE 12 U/L (12-78); ALKALINE PHOSPHATASE 78 U/L (46-116); ANION GAP 6 mmol/L (8-16); ASPARTATE AMINOTRANSFERASE 16 U/L (15-37); BILIRUBIN,TOTAL 0.6 mg/dL (0.1-1.0); CALCIUM, TOTAL 8.5 mg/dL (8.8-10.5); CARBON DIOXIDE 27 mmol/L (22-29); CHLORIDE 100 mmol/L (98-107); CHOL/HDL RATIO 2.3 (3.9-5.7); CHOLESTEROL 139 mg/dL (131-200); CREATININE 0.65 mg/dL (0.60-1.30); FREE T4 (FREE THYROXINE) 1.31 ng/dL (0.76-1.46); GLOMERULAR FILTR. RATE CALC > 60 mL/min (>60); GLUCOSE,RANDOM 173 mg/dL (70-110); HCG,QUANTITATIVE 1 mIU/mL (0-6); HDL CHOLESTEROL 61 mg/dL (40-60); LDL CHOL (CALC.) 67 mg/dL (0-130); POTASSIUM 3.9 mmol/L (3.5-5.1); SODIUM SERUM 133 mmol/L (136-145); THYROID STIMULATING HORMONE 0.44 uIU/mL (0.36-3.74); TOTAL PROTEIN, SERUM 7.1 g/dL (6.4-8.2); TRIGLYCERIDES 57 mg/dL (15-150)
[2022-06-27 08:09] VITALS: BP 100/62
[2022-06-27 12:16] LABS: GLUCOMETER DEV NAME(LOC) BV3S.; GLUCOSE,POINT OF CARE 214 MG/DL (70-110)
[2022-06-27 16:41] LABS: GLUCOMETER DEV NAME(LOC) BV3S.; GLUCOSE,POINT OF CARE 225 MG/DL (70-110)
[2022-06-27] MEDS: BENZTROPINE MESYLATE 2 MG TABLET PO SCH (20:52)
[2022-06-27] MEDS: HALOPERIDOL 10 MG TABLET PO SCH (20:53)
[2022-06-27] MEDS: INSULIN GLARGINE,HUM.REC.ANLOG 100 UNITS/ML SQ SCH (21:21)
[2022-06-27 21:22] LABS: GLUCOMETER DEV NAME(LOC) BV3S.; GLUCOSE,POINT OF CARE 145 MG/DL (70-110)
[2022-06-27 22:56] VITALS: BP 128/88
[2022-06-28 06:21] LABS: GLUCOMETER DEV NAME(LOC) BV3S.; GLUCOSE,POINT OF CARE 152 MG/DL (70-110)
[2022-06-28] MEDS: INSULIN LISPRO 100 UNITS/ML SQ PRN ×4 (06:37→20:43)
[2022-06-28] MEDS: MetFORMIN HCL 500 MG TABLET PO SCH ×2 (06:43→16:45)
[2022-06-28 07:39] LABS: APPEARANCE,URINE TURBID (CLEAR); BILIRUBIN,URINE NEGATIVE (NEGATIVE); GLUCOSE, URINE (UA) NEGATIVE (NEGATIVE); KETONES,URINE NEGATIVE (NEGATIVE); LEUKOCYTE ESTERASE ,URINE LARGE (NEGATIVE); NITRATE,URINE POSITIVE (NEGATIVE); OCCULT BLOOD,URINE NEGATIVE (NEGATIVE); PROTEIN,URINE 30-70 mg/dL (NEGATIVE); SPECIFIC GRAVITIY, URINE 1.022 (1.003-1.030); UROBILINOGEN,URINE <=1.0 mg/dL (<=1.0)
[2022-06-28 07:46] LABS: AMPHET/METH SCREEN,URINE POSITIVE (NEGATIVE); BARBITURATE SCREEN, URINE NEGATIVE (NEGATIVE); BENZODIAZEPINES SCREEN,URINE NEGATIVE (NEGATIVE); CANNABINOID SCREEN,URINE NEGATIVE (NEGATIVE); COCAINE SCREEN,URINE NEGATIVE (NEGATIVE); METHADONE SCREEN, URINE NEGATIVE (NEGATIVE); OPIATE SCREEN,URINE NEGATIVE (NEGATIVE); PHENCYCLIDINE SCREEN,URINE NEGATIVE (NEGATIVE)
[2022-06-28 08:02] LABS: BACTERIA,URINE Many /HPF (None Seen); CALCIUM OXALATE CRYSTALS,UR Few /LPF (None Seen); RBC,URINE None Seen /HPF (0-2); SQUAMOUS EPITHELIAL CELL,UR Many /LPF (None Seen)
[2022-06-28 11:46] LABS: GLUCOMETER DEV NAME(LOC) BV3S.; GLUCOSE,POINT OF CARE 230 MG/DL (70-110)
[2022-06-28 16:21] LABS: GLUCOMETER DEV NAME(LOC) BV3S.; GLUCOSE,POINT OF CARE 147 MG/DL (70-110)
[2022-06-28 20:26] LABS: GLUCOMETER DEV NAME(LOC) BV3S.; GLUCOSE,POINT OF CARE 208 MG/DL (70-110)
[2022-06-28] MEDS: HALOPERIDOL 5 MG TABLET PO SCH (20:39)
[2022-06-28] MEDS: BENZTROPINE MESYLATE 2 MG TABLET PO SCH (20:39)
[2022-06-28] MEDS: INSULIN GLARGINE,HUM.REC.ANLOG 100 UNITS/ML SQ SCH (20:43)
[2022-06-28] MEDS ORDERED: BENZTROPINE MESYLATE 2 MG TABLET PO SCH (21:00)
[2022-06-28 21:20] VITALS: BP 100/62
[2022-06-29] MEDS: INSULIN LISPRO 100 UNITS/ML SQ PRN ×4 (06:28→21:16)
[2022-06-29 06:36] LABS: GLUCOMETER DEV NAME(LOC) BV3S.; GLUCOSE,POINT OF CARE 161 MG/DL (70-110)
[2022-06-29] MEDS: MetFORMIN HCL 500 MG TABLET PO SCH ×2 (06:39→16:54)
[2022-06-29 09:04] VITALS: BP 114/73
[2022-06-29 12:11] LABS: GLUCOMETER DEV NAME(LOC) BV3S.; GLUCOSE,POINT OF CARE 167 MG/DL (70-110)
[2022-06-29 16:51] LABS: GLUCOMETER DEV NAME(LOC) BV3S.; GLUCOSE,POINT OF CARE 201 MG/DL (70-110)
[2022-06-29] MEDS: BENZTROPINE MESYLATE 2 MG TABLET PO SCH (20:41)
[2022-06-29] MEDS: HALOPERIDOL 5 MG TABLET PO SCH (20:41)
[2022-06-29 20:50] LABS: GLUCOMETER DEV NAME(LOC) BV3S.; GLUCOSE,POINT OF CARE 153 MG/DL (70-110)
[2022-06-29] MEDS: INSULIN GLARGINE,HUM.REC.ANLOG 100 UNITS/ML SQ SCH (21:16)
[2022-06-30 06:22] LABS: GLUCOMETER DEV NAME(LOC) BV3S.; GLUCOSE,POINT OF CARE 135 MG/DL (70-110)
[2022-06-30] MEDS: MetFORMIN HCL 500 MG TABLET PO SCH ×2 (06:23→16:31)
[2022-06-30] MEDS: INSULIN LISPRO 100 UNITS/ML SQ PRN ×4 (06:28→20:45)
[2022-06-30 08:34] VITALS: BP 102/69
[2022-06-30 11:25] LABS: GLUCOMETER DEV NAME(LOC) BV3S.; GLUCOSE,POINT OF CARE 243 MG/DL (70-110)
[2022-06-30 16:41] LABS: GLUCOMETER DEV NAME(LOC) BV3S.; GLUCOSE,POINT OF CARE 220 MG/DL (70-110)
[2022-06-30 20:13] VITALS: BP 108/60
[2022-06-30] MEDS: BENZTROPINE MESYLATE 2 MG TABLET PO SCH (20:36)
[2022-06-30] MEDS: HALOPERIDOL 5 MG TABLET PO SCH (20:37)
[2022-06-30 20:46] LABS: GLUCOMETER DEV NAME(LOC) BV3S.; GLUCOSE,POINT OF CARE 136 MG/DL (70-110)
[2022-06-30] MEDS: INSULIN GLARGINE,HUM.REC.ANLOG 100 UNITS/ML SQ SCH (20:54)
[2022-07-01] MEDS: LORazepam 2 MG TABLET PO PRN (04:35)
[2022-07-01] MEDS: HALOPERIDOL 5 MG TABLET PO PRN (05:47)
[2022-07-01 06:11] LABS: GLUCOMETER DEV NAME(LOC) BV3S.; GLUCOSE,POINT OF CARE 175 MG/DL (70-110)
[2022-07-01] MEDS: MetFORMIN HCL 500 MG TABLET PO SCH ×2 (06:34→16:38)
[2022-07-01] MEDS: INSULIN LISPRO 100 UNITS/ML SQ PRN (06:45)
[2022-07-01] MEDS ORDERED: HALOPERIDOL LACTATE 5 MG/ML VIAL ONE (07:39)
[2022-07-01] MEDS ORDERED: DiphenhydrAMINE HCL 50 MG/ML VIAL ONE (07:39)
[2022-07-01] MEDS ORDERED: LORazepam 2 MG/ML VIAL ONE (07:39)
[2022-07-01] MEDS ORDERED: LORazepam 2 MG/ML VIAL IM ONE ×2 (07:45→10:15)
[2022-07-01] MEDS ORDERED: HALOPERIDOL LACTATE 5 MG/ML VIAL IM ONE ×2 (07:45→10:15)
[2022-07-01] MEDS ORDERED: DiphenhydrAMINE HCL 50 MG/ML VIAL IM ONE (07:45)
[2022-07-01 08:29] VITALS: BP 103/60
[2022-07-01 11:41] LABS: GLUCOMETER DEV NAME(LOC) BV3S.; GLUCOSE,POINT OF CARE 87 MG/DL (70-110)
[2022-07-01 16:51] LABS: GLUCOMETER DEV NAME(LOC) BV3S.; GLUCOSE,POINT OF CARE 99 MG/DL (70-110)
[2022-07-01 17:31] LABS: GLUCOMETER DEV NAME(LOC) POC.BV
[2022-07-01 20:30] VITALS: BP 107/73
[2022-07-01] MEDS: BENZTROPINE MESYLATE 2 MG TABLET PO SCH (21:08)
[2022-07-01] MEDS: HALOPERIDOL 10 MG TABLET PO SCH (21:08)
[2022-07-01] MEDS: INSULIN GLARGINE,HUM.REC.ANLOG 100 UNITS/ML SQ SCH (21:09)
[2022-07-01 21:16] LABS: GLUCOMETER DEV NAME(LOC) BV3S.; GLUCOSE,POINT OF CARE 114 MG/DL (70-110)
[2022-07-02] MEDS: MetFORMIN HCL 500 MG TABLET PO SCH ×2 (07:00→16:39)
[2022-07-02 09:07] VITALS: BP 123/80
[2022-07-02 11:56] LABS: GLUCOMETER DEV NAME(LOC) BV3S.; GLUCOSE,POINT OF CARE 90 MG/DL (70-110)
[2022-07-02] MEDS ORDERED: HALOPERIDOL LACTATE 5 MG/ML VIAL ONE (14:48)
[2022-07-02] MEDS ORDERED: LORazepam 2 MG/ML VIAL ONE (14:48)
[2022-07-02] MEDS ORDERED: DiphenhydrAMINE HCL 50 MG/ML VIAL ONE (14:49)
[2022-07-02] MEDS ORDERED: HALOPERIDOL LACTATE 5 MG/ML VIAL IM ONE (15:00)
[2022-07-02] MEDS ORDERED: DiphenhydrAMINE HCL 50 MG/ML VIAL IM ONE (15:00)
[2022-07-02] MEDS ORDERED: LORazepam 2 MG/ML VIAL IM ONE (15:00)
[2022-07-02] MEDS: CEPHALEXIN MONOHYDRATE 500 MG CAPSULE PO SCH (16:39)
[2022-07-02] MEDS: INSULIN LISPRO 100 UNITS/ML SQ PRN (16:49)
[2022-07-02 17:11] LABS: GLUCOMETER DEV NAME(LOC) BV3S.; GLUCOSE,POINT OF CARE 182 MG/DL (70-110)
[2022-07-02 20:56] LABS: GLUCOMETER DEV NAME(LOC) BV3S.; GLUCOSE,POINT OF CARE 80 MG/DL (70-110)
[2022-07-02] MEDS: ZOLPIDEM TARTRATE 10 MG TABLET PO PRN (21:24)
[2022-07-02] MEDS: HALOPERIDOL 10 MG TABLET PO SCH (21:25)
[2022-07-02] MEDS: BENZTROPINE MESYLATE 2 MG TABLET PO SCH (21:25)
[2022-07-02 21:30] VITALS: BP 120/79
[2022-07-02] MEDS: INSULIN GLARGINE,HUM.REC.ANLOG 100 UNITS/ML SQ SCH (21:37)
[2022-07-03] MEDS: LORazepam 2 MG TABLET PO PRN ×3 (00:30→16:14)
[2022-07-03] MEDS: MetFORMIN HCL 500 MG TABLET PO SCH ×2 (07:00→16:14)
[2022-07-03 08:32] VITALS: BP 113/73
[2022-07-03] MEDS: CEPHALEXIN MONOHYDRATE 500 MG CAPSULE PO SCH ×2 (08:49→16:14)
[2022-07-03 11:46] LABS: GLUCOMETER DEV NAME(LOC) BV3S.; GLUCOSE,POINT OF CARE 112 MG/DL (70-110)
[2022-07-03] MEDS: INSULIN LISPRO 100 UNITS/ML SQ PRN (16:57)
[2022-07-03 17:31] LABS: GLUCOMETER DEV NAME(LOC) BV3S.; GLUCOSE,POINT OF CARE 213 MG/DL (70-110)
[2022-07-03] MEDS: BENZTROPINE MESYLATE 2 MG TABLET PO SCH (21:23)
[2022-07-03] MEDS: HALOPERIDOL 10 MG TABLET PO SCH (21:24)
[2022-07-03] MEDS: INSULIN GLARGINE,HUM.REC.ANLOG 100 UNITS/ML SQ SCH (21:37)
[2022-07-03 21:47] LABS: GLUCOMETER DEV NAME(LOC) BV3S.; GLUCOSE,POINT OF CARE 80 MG/DL (70-110)
[2022-07-03 22:00] VITALS: BP 103/69
[2022-07-04 06:46] LABS: GLUCOMETER DEV NAME(LOC) BV3S.; GLUCOSE,POINT OF CARE 49 MG/DL (70-110)
[2022-07-04] MEDS: MetFORMIN HCL 500 MG TABLET PO SCH ×2 (07:00→17:50)
[2022-07-04] MEDS: CEPHALEXIN MONOHYDRATE 500 MG CAPSULE PO SCH ×2 (09:00→17:50)
[2022-07-04 17:51] VITALS: BP 138/72
[2022-07-04] MEDS: INSULIN LISPRO 100 UNITS/ML SQ PRN ×2 (17:52→20:35)
[2022-07-04] MEDS: INSULIN GLARGINE,HUM.REC.ANLOG 100 UNITS/ML SQ SCH (20:34)
[2022-07-04] MEDS: BENZTROPINE MESYLATE 2 MG TABLET PO SCH (20:36)
[2022-07-04] MEDS: HALOPERIDOL 10 MG TABLET PO SCH (20:37)
[2022-07-04 21:16] VITALS: BP 124/70
[2022-07-04] MEDS: ZOLPIDEM TARTRATE 10 MG TABLET PO PRN (21:26)
[2022-07-04] MEDS: LOPERAMIDE HCL 2 MG CAPSULE PO PRN (22:40)
[2022-07-05] MEDS: LOPERAMIDE HCL 2 MG CAPSULE PO PRN (02:04)
[2022-07-05] MEDS: MetFORMIN HCL 500 MG TABLET PO SCH ×2 (06:38→16:10)
[2022-07-05] MEDS: CEPHALEXIN MONOHYDRATE 500 MG CAPSULE PO SCH ×2 (08:09→16:08)
[2022-07-05 08:19] VITALS: BP 128/83
[2022-07-05 11:51] LABS: GLUCOMETER DEV NAME(LOC) 3EX.2; GLUCOSE,POINT OF CARE 180 MG/DL (70-110)
[2022-07-05] MEDS: INSULIN LISPRO 100 UNITS/ML SQ PRN ×3 (11:56→21:08)
[2022-07-05 15:46] LABS: GLUCOMETER DEV NAME(LOC) 3EX.2; GLUCOSE,POINT OF CARE 138 MG/DL (70-110)
[2022-07-05 16:34] VITALS: BP 135/86
[2022-07-05 20:51] LABS: GLUCOMETER DEV NAME(LOC) 3EX.2; GLUCOSE,POINT OF CARE 160 MG/DL (70-110)
[2022-07-05] MEDS: BENZTROPINE MESYLATE 2 MG TABLET PO SCH (21:04)
[2022-07-05] MEDS: HALOPERIDOL 10 MG TABLET PO SCH (21:05)
[2022-07-05] MEDS: INSULIN GLARGINE,HUM.REC.ANLOG 100 UNITS/ML SQ SCH (21:07)
[2022-07-06 06:42] LABS: GLUCOMETER DEV NAME(LOC) 3EX.2; GLUCOSE,POINT OF CARE 82 MG/DL (70-110)
[2022-07-06] MEDS: MetFORMIN HCL 500 MG TABLET PO SCH ×2 (06:50→16:33)
[2022-07-06] MEDS: CEPHALEXIN MONOHYDRATE 500 MG CAPSULE PO SCH ×2 (08:35→16:32)
[2022-07-06 09:14] VITALS: BP 105/60
[2022-07-06] MEDS: INSULIN LISPRO 100 UNITS/ML SQ PRN ×2 (12:50→17:50)
[2022-07-06 13:01] LABS: GLUCOMETER DEV NAME(LOC) 3EX.2; GLUCOSE,POINT OF CARE 153 MG/DL (70-110)
[2022-07-06 16:06] VITALS: BP 109/67
[2022-07-06] MEDS: IBUPROFEN 600 MG TABLET PO PRN (16:06)
[2022-07-06 16:29] VITALS: BP 120/58
[2022-07-06 16:41] LABS: GLUCOMETER DEV NAME(LOC) 3EX.2; GLUCOSE,POINT OF CARE 147 MG/DL (70-110)
[2022-07-06] MEDS: BENZTROPINE MESYLATE 2 MG TABLET PO SCH (20:09)
[2022-07-06] MEDS: HALOPERIDOL 10 MG TABLET PO SCH (20:09)
[2022-07-06 20:16] LABS: GLUCOMETER DEV NAME(LOC) 3EX.2; GLUCOSE,POINT OF CARE 79 MG/DL (70-110)
[2022-07-06] MEDS: INSULIN GLARGINE,HUM.REC.ANLOG 100 UNITS/ML SQ SCH (21:27)
[2022-07-07 05:56] LABS: GLUCOMETER DEV NAME(LOC) 3EX.2; GLUCOSE,POINT OF CARE 132 MG/DL (70-110)
[2022-07-07] MEDS: MetFORMIN HCL 500 MG TABLET PO SCH ×2 (06:40→17:29)
[2022-07-07] MEDS: INSULIN LISPRO 100 UNITS/ML SQ PRN ×2 (06:41→17:31)
[2022-07-07 08:25] VITALS: BP 97/57
[2022-07-07] MEDS: CEPHALEXIN MONOHYDRATE 500 MG CAPSULE PO SCH ×2 (08:25→16:23)
[2022-07-07 10:31] LABS: GLUCOMETER DEV NAME(LOC) 3EX.2; GLUCOSE,POINT OF CARE 102 MG/DL (70-110)
[2022-07-07 10:31] LABS: GLUCOMETER DEV NAME(LOC) 3EX.2; GLUCOSE,POINT OF CARE 170 MG/DL (70-110)
[2022-07-07 10:31] LABS: GLUCOMETER DEV NAME(LOC) 3EX.2; GLUCOSE,POINT OF CARE 140 MG/DL (70-110)
[2022-07-07 11:06] LABS: GLUCOMETER DEV NAME(LOC) 3EX.2; GLUCOSE,POINT OF CARE 113 MG/DL (70-110)
[2022-07-07 16:05] VITALS: BP 106/69
[2022-07-07 16:36] LABS: GLUCOMETER DEV NAME(LOC) 3EX.2; GLUCOSE,POINT OF CARE 171 MG/DL (70-110)
[2022-07-07] MEDS: BENZTROPINE MESYLATE 2 MG TABLET PO SCH (20:01)
[2022-07-07] MEDS: HALOPERIDOL 10 MG TABLET PO SCH (20:02)
[2022-07-07 20:12] LABS: GLUCOMETER DEV NAME(LOC) 3EX.2; GLUCOSE,POINT OF CARE 111 MG/DL (70-110)
[2022-07-07 20:48] VITALS: BP 119/60
[2022-07-07] MEDS: INSULIN GLARGINE,HUM.REC.ANLOG 100 UNITS/ML SQ SCH (21:14)
[2022-07-08 05:57] LABS: GLUCOMETER DEV NAME(LOC) 3EX.2; GLUCOSE,POINT OF CARE 122 MG/DL (70-110)
[2022-07-08] MEDS: MetFORMIN HCL 500 MG TABLET PO SCH ×2 (06:47→17:21)
[2022-07-08] MEDS: INSULIN LISPRO 100 UNITS/ML SQ PRN ×4 (06:51→21:19)
[2022-07-08 07:32] LABS: COVID AG,FIA SOURCE NASAL SWAB
[2022-07-08] MEDS: CEPHALEXIN MONOHYDRATE 500 MG CAPSULE PO SCH ×2 (08:06→16:02)
[2022-07-08 08:30] VITALS: BP 97/61
[2022-07-08 11:17] LABS: GLUCOMETER DEV NAME(LOC) 3EX.2; GLUCOSE,POINT OF CARE 228 MG/DL (70-110)
[2022-07-08 16:06] VITALS: BP 99/69
[2022-07-08 16:21] LABS: GLUCOMETER DEV NAME(LOC) 3EX.2; GLUCOSE,POINT OF CARE 151 MG/DL (70-110)
[2022-07-08] MEDS: HALOPERIDOL 10 MG TABLET PO SCH (20:24)
[2022-07-08] MEDS: BENZTROPINE MESYLATE 2 MG TABLET PO SCH (20:24)
[2022-07-08] MEDS: INSULIN GLARGINE,HUM.REC.ANLOG 100 UNITS/ML SQ SCH (21:20)
[2022-07-09 05:01] LABS: GLUCOMETER DEV NAME(LOC) 3EX.2; GLUCOSE,POINT OF CARE 125 MG/DL (70-110)
[2022-07-09 05:40] LABS: GLUCOMETER DEV NAME(LOC) 3EX.2; GLUCOSE,POINT OF CARE 114 MG/DL (70-110)
[2022-07-09] MEDS: MetFORMIN HCL 500 MG TABLET PO SCH ×2 (06:39→17:46)
[2022-07-09 08:16] VITALS: BP 99/59
[2022-07-09] MEDS: CEPHALEXIN MONOHYDRATE 500 MG CAPSULE PO SCH ×2 (08:19→16:01)
[2022-07-09 16:26] LABS: GLUCOMETER DEV NAME(LOC) 3EX.2; GLUCOSE,POINT OF CARE 257 MG/DL (70-110)
[2022-07-09] MEDS: INSULIN LISPRO 100 UNITS/ML SQ PRN (17:10)
[2022-07-09 20:51] LABS: GLUCOMETER DEV NAME(LOC) 3EX.2; GLUCOSE,POINT OF CARE 85 MG/DL (70-110)
[2022-07-09] MEDS: INSULIN GLARGINE,HUM.REC.ANLOG 100 UNITS/ML SQ SCH (21:10)
[2022-07-09] MEDS: BENZTROPINE MESYLATE 2 MG TABLET PO SCH (21:16)
[2022-07-09] MEDS: HALOPERIDOL 10 MG TABLET PO SCH (21:16)
[2022-07-09] MEDS: ZOLPIDEM TARTRATE 10 MG TABLET PO PRN (21:54)
[2022-07-10 05:56] LABS: GLUCOMETER DEV NAME(LOC) 3EX.2; GLUCOSE,POINT OF CARE 100 MG/DL (70-110)
[2022-07-10] MEDS: MetFORMIN HCL 500 MG TABLET PO SCH ×2 (06:35→18:06)
[2022-07-10 08:46] VITALS: BP 127/75
[2022-07-10 12:01] LABS: GLUCOMETER DEV NAME(LOC) 3EX.2; GLUCOSE,POINT OF CARE 129 MG/DL (70-110)
[2022-07-10] MEDS: LORazepam 2 MG TABLET PO PRN ×2 (12:48→19:30)
[2022-07-10] MEDS: HALOPERIDOL 5 MG TABLET PO PRN (12:48)
[2022-07-10 15:25] VITALS: BP 124/72
[2022-07-10] MEDS: IBUPROFEN 600 MG TABLET PO PRN (15:25)
[2022-07-10 16:25] VITALS: BP 122/78
[2022-07-10 16:41] LABS: GLUCOMETER DEV NAME(LOC) 3EX.2; GLUCOSE,POINT OF CARE 145 MG/DL (70-110)
[2022-07-10] MEDS: INSULIN LISPRO 100 UNITS/ML SQ PRN (17:44)
[2022-07-10 20:29] VITALS: BP 150/90
[2022-07-10 20:41] LABS: GLUCOMETER DEV NAME(LOC) 3EX.2; GLUCOSE,POINT OF CARE 84 MG/DL (70-110)
[2022-07-10] MEDS: HALOPERIDOL 10 MG TABLET PO SCH (20:58)
[2022-07-10] MEDS: BENZTROPINE MESYLATE 2 MG TABLET PO SCH (20:58)
[2022-07-10] MEDS: ZOLPIDEM TARTRATE 10 MG TABLET PO PRN (21:00)
[2022-07-10] MEDS: INSULIN GLARGINE,HUM.REC.ANLOG 100 UNITS/ML SQ SCH (21:03)
[2022-07-11 03:30] VITALS: BP 137/69
[2022-07-11 03:56] LABS: GLUCOMETER DEV NAME(LOC) 3E.C; GLUCOSE,POINT OF CARE 54 MG/DL (70-110)
[2022-07-11 04:15] VITALS: BP 127/63
[2022-07-11 04:36] LABS: GLUCOMETER DEV NAME(LOC) 3EX.2; GLUCOSE,POINT OF CARE 119 MG/DL (70-110)
[2022-07-11 05:41] LABS: GLUCOMETER DEV NAME(LOC) 3EX.2; GLUCOSE,POINT OF CARE 173 MG/DL (70-110)
[2022-07-11] MEDS: MetFORMIN HCL 500 MG TABLET PO SCH ×2 (06:35→17:49)
[2022-07-11 08:14] VITALS: BP 124/58
[2022-07-11 09:32] VITALS: BP 126/74
[2022-07-11] MEDS: IBUPROFEN 600 MG TABLET PO PRN (09:32)
[2022-07-11] MEDS: HALOPERIDOL 5 MG TABLET PO PRN (09:32)
[2022-07-11] MEDS: BACITRACIN 28 GM OINTMENT TP SCH ×2 (09:46→17:50)
[2022-07-11] MEDS ORDERED: DEXTROSE 50%-WATER 25 GM/50 ML SYRINGE IVP PRN (10:00)
[2022-07-11 10:32] VITALS: BP 122/78
[2022-07-11 10:33] LABS: BASOPHILS % (AUTO) 0.4 % (0.0-2.0); EOSINOPHILS % (AUTO) 1.9 % (1.0-6.0); HEMATOCRIT 39.4 % (36-46); HEMOGLOBIN 12.9 g/dL (12.0-16.0); LYMPHOCYTES # (AUTO) 1.9 K/uL (1.0-4.8); LYMPHOCYTES % (AUTO) 13.1 % (22.0-44.0); MEAN CORPUSCULAR HEMOGLOBIN 27.7 pg (26.0-34.0); MEAN CORPUSCULAR HGB CONC 32.8 G/dL (31.0-37.0); MEAN CORPUSCULAR VOLUME 84 fL (80-100); MONOCYTES # (AUTO) 0.5 K/uL (0.1-1.0); MONOCYTES % (AUTO) 3.4 % (2.0-9.0); NEUTROPHILS # (AUTO) 11.8 K/uL (1.8-7.7); NEUTROPHILS % (AUTO) 81.2 % (40.0-70.0); PLATELET COUNT (AUTO) 484 K/uL (150-450); RED BLOOD CELL COUNT(AUTO) 4.67 MIL/uL (4.00-5.20); RED CELL DISTRIBUTION WIDTH 14.1 % (11.5-14.5)
[2022-07-11 10:41] LABS: APPEARANCE,URINE HAZY (CLEAR); BILIRUBIN,URINE NEGATIVE (NEGATIVE); GLUCOSE, URINE (UA) NEGATIVE (NEGATIVE); KETONES,URINE NEGATIVE (NEGATIVE); LEUKOCYTE ESTERASE ,URINE MODERATE (NEGATIVE); NITRATE,URINE POSITIVE (NEGATIVE); OCCULT BLOOD,URINE NEGATIVE (NEGATIVE); PH,URINE 6.5 (5.0-8.0); PROTEIN,URINE NEGATIVE (NEGATIVE); SPECIFIC GRAVITIY, URINE 1.009 (1.003-1.030); UROBILINOGEN,URINE <=1.0 mg/dL (<=1.0)
[2022-07-11 10:50] LABS: RBC,URINE None Seen /HPF (0-2)
[2022-07-11 10:51] LABS: BACTERIA,URINE Many /HPF (None Seen); SQUAMOUS EPITHELIAL CELL,UR Rare /LPF (None Seen)
[2022-07-11 11:03] LABS: ANION GAP 7 mmol/L (8-16); CALCIUM, TOTAL 9.1 mg/dL (8.8-10.5); CARBON DIOXIDE 30 mmol/L (22-29); CHLORIDE 102 mmol/L (98-107); CREATININE 0.63 mg/dL (0.60-1.30); GLOMERULAR FILTR. RATE CALC > 60 mL/min (>60); GLUCOSE,RANDOM 84 mg/dL (70-110); POTASSIUM 3.5 mmol/L (3.5-5.1); SODIUM SERUM 139 mmol/L (136-145)
[2022-07-11 11:08] LABS: ALANINE AMINOTRANSFERASE 11 U/L (12-78); ALBUMIN 3.5 g/dL (3.4-5.0); ALKALINE PHOSPHATASE 85 U/L (46-116); ASPARTATE AMINOTRANSFERASE 14 U/L (15-37); BILIRUBIN,TOTAL 0.2 mg/dL (0.1-1.0); PHOSPHORUS 5.7 mg/dL (2.5-4.9); TOTAL PROTEIN, SERUM 8.2 g/dL (6.4-8.2)
[2022-07-11 11:26] LABS: GLUCOMETER DEV NAME(LOC) 3EX.2; GLUCOSE,POINT OF CARE 93 MG/DL (70-110)
[2022-07-11 16:46] LABS: GLUCOMETER DEV NAME(LOC) 3EX.2; GLUCOSE,POINT OF CARE 91 MG/DL (70-110)
[2022-07-11 18:11] LABS: CHOL/HDL RATIO 2.9 (3.9-5.7); CHOLESTEROL 140 mg/dL (131-200); HDL CHOLESTEROL 48 mg/dL (40-60); LDL CHOL (CALC.) 78 mg/dL (0-130); TRIGLYCERIDES 71 mg/dL (15-150)
[2022-07-11 20:06] VITALS: BP 121/79
[2022-07-11 20:11] LABS: GLUCOMETER DEV NAME(LOC) 3EX.2; GLUCOSE,POINT OF CARE 127 MG/DL (70-110)
[2022-07-11] MEDS: BENZTROPINE MESYLATE 2 MG TABLET PO SCH (20:23)
[2022-07-11] MEDS: HALOPERIDOL 10 MG TABLET PO SCH (20:23)
[2022-07-11] MEDS: NITROFURANTOIN MONOHYD/M-CRYST 100 MG CAPSULE [MACROBID] PO SCH (23:14)
[2022-07-12 05:42] LABS: GLUCOMETER DEV NAME(LOC) 3EX.2; GLUCOSE,POINT OF CARE 89 MG/DL (70-110)
[2022-07-12] MEDS: MetFORMIN HCL 500 MG TABLET PO SCH ×2 (06:40→16:39)
[2022-07-12 08:01] VITALS: BP 106/65
[2022-07-12] MEDS: NITROFURANTOIN MONOHYD/M-CRYST 100 MG CAPSULE [MACROBID] PO SCH ×2 (08:04→16:38)
[2022-07-12] MEDS: BACITRACIN 28 GM OINTMENT TP SCH ×2 (08:05→16:40)
[2022-07-12 11:42] LABS: GLUCOMETER DEV NAME(LOC) 3EX.2; GLUCOSE,POINT OF CARE 101 MG/DL (70-110)
[2022-07-12 17:16] LABS: GLUCOMETER DEV NAME(LOC) 3EX.2; GLUCOSE,POINT OF CARE 114 MG/DL (70-110)
[2022-07-12] MEDS: HALOPERIDOL 10 MG TABLET PO SCH (20:44)
[2022-07-12] MEDS: BENZTROPINE MESYLATE 2 MG TABLET PO SCH (20:44)
[2022-07-12] MEDS: INSULIN LISPRO 100 UNITS/ML SQ PRN (21:05)
[2022-07-12 21:22] LABS: GLUCOMETER DEV NAME(LOC) 3EX.2; GLUCOSE,POINT OF CARE 122 MG/DL (70-110)
[2022-07-13] MEDS: INSULIN LISPRO 100 UNITS/ML SQ PRN ×4 (06:32→21:02)
[2022-07-13] MEDS: MetFORMIN HCL 500 MG TABLET PO SCH ×2 (06:32→17:11)
[2022-07-13 07:36] LABS: GLUCOMETER DEV NAME(LOC) 3EX.2; GLUCOSE,POINT OF CARE 105 MG/DL (70-110)
[2022-07-13 08:18] VITALS: BP 111/68
[2022-07-13] MEDS: BACITRACIN 28 GM OINTMENT TP SCH ×2 (10:36→17:11)
[2022-07-13] MEDS: NITROFURANTOIN MONOHYD/M-CRYST 100 MG CAPSULE [MACROBID] PO SCH ×2 (10:36→17:11)
[2022-07-13 12:26] LABS: GLUCOMETER DEV NAME(LOC) 3EX.2; GLUCOSE,POINT OF CARE 160 MG/DL (70-110)
[2022-07-13 17:22] LABS: GLUCOMETER DEV NAME(LOC) 3EX.2; GLUCOSE,POINT OF CARE 160 MG/DL (70-110)
[2022-07-13] MEDS: HALOPERIDOL 10 MG TABLET PO SCH (20:39)
[2022-07-13] MEDS: BENZTROPINE MESYLATE 2 MG TABLET PO SCH (20:39)
[2022-07-13 22:02] LABS: GLUCOMETER DEV NAME(LOC) 3EX.2; GLUCOSE,POINT OF CARE 104 MG/DL (70-110)
[2022-07-14] MEDS: MetFORMIN HCL 500 MG TABLET PO SCH (06:36)
[2022-07-14] MEDS: INSULIN LISPRO 100 UNITS/ML SQ PRN ×2 (06:46→12:03)
[2022-07-14 07:06] LABS: GLUCOMETER DEV NAME(LOC) 3EX.2; GLUCOSE,POINT OF CARE 130 MG/DL (70-110)
[2022-07-14 08:22] VITALS: BP 126/78
[2022-07-14] MEDS: BACITRACIN 28 GM OINTMENT TP SCH (08:28)
[2022-07-14] MEDS: NITROFURANTOIN MONOHYD/M-CRYST 100 MG CAPSULE [MACROBID] PO SCH (08:28)
[2022-07-14] MEDS ORDERED: HALO10TA21 PO (11:49)
[2022-07-14] MEDS ORDERED: BENZ2TAB76 PO (11:49)
[2022-07-14 12:07] LABS: GLUCOMETER DEV NAME(LOC) 3EX.2; GLUCOSE,POINT OF CARE 143 MG/DL (70-110)
[2022-07-14] MEDS ORDERED: NITR100C4 PO (12:47)
== END 2022-07-14 13:51 | disposition home or self-care (01) | DRG 750 ==
LOC: B3A 10:58 → 3EC 07-04 16:19
PROVIDERS: ADMIT Psychiatry & Neurology Psychiatry; ATTEND Psychiatry & Neurology Psychiatry
DX: F25.9 Schizoaffective disorder, unspecified (principal); E11.65 Type 2 diabetes mellitus with hyperglycemia; E78.5 Hyperlipidemia, unspecified; F41.9 Anxiety disorder, unspecified; G47.00 Insomnia, unspecified; K59.00 Constipation, unspecified; Z20.822 Contact with and (suspected) exposure to COVID-19; F32.9 Major depressive disorder, single episode, unspecified; Z79.84 Long term (current) use of oral hypoglycemic drugs; Z28.21 Immunization not carried out because of patient refusal; Z79.899 Other long term (current) drug therapy
CPT/HCPCS: 70450; 80053; 80061; 80307; 81001; 82140; 82962; 83036; 83735; 84100; 84436; 84439; 84443; 84702; 85025; 86592; 87086; 87186; G0480; J1200; J1610; J1630; J1815; J2060

== ENCOUNTER 2022-07-01 23:07 | Emergency (ER) | payer MEDICAID, OTHER ==
[~2022-07-01] VITALS: Ht 162.6 cm; Wt 63.0 kg
[2022-07-02 00:57] LABS: BASOPHILS % (AUTO) 0.8 % (0.0-2.0); EOSINOPHILS % (AUTO) 1.4 % (1.0-6.0); HEMOGLOBIN 12.6 g/dL (12.0-16.0); LYMPHOCYTES # (AUTO) 2.2 K/uL (1.0-4.8); LYMPHOCYTES % (AUTO) 21.3 % (22.0-44.0); MEAN CORPUSCULAR HEMOGLOBIN 28.3 pg (26.0-34.0); MEAN CORPUSCULAR HGB CONC 33.2 G/dL (31.0-37.0); MEAN CORPUSCULAR VOLUME 85 fL (80-100); MONOCYTES # (AUTO) 0.7 K/uL (0.1-1.0); MONOCYTES % (AUTO) 6.9 % (2.0-9.0); NEUTROPHILS # (AUTO) 7.1 K/uL (1.8-7.7); NEUTROPHILS % (AUTO) 69.6 % (40.0-70.0); PLATELET COUNT (AUTO) 341 K/uL (150-450); RED BLOOD CELL COUNT(AUTO) 4.46 MIL/uL (4.00-5.20); RED CELL DISTRIBUTION WIDTH 14.4 % (11.5-14.5)
[2022-07-02 01:07] LABS: ANION GAP 4 mmol/L (8-16); CARBON DIOXIDE 31 mmol/L (22-29); CHLORIDE 103 mmol/L (98-107); CREATININE 0.64 mg/dL (0.60-1.30); GLOMERULAR FILTR. RATE CALC > 60 mL/min (>60); GLUCOSE,RANDOM 102 mg/dL (70-110); POTASSIUM 4.2 mmol/L (3.5-5.1); SODIUM SERUM 138 mmol/L (136-145); UREA NITROGEN, BLOOD 14 mg/dL (7-18)
[2022-07-02 01:14] LABS: ALANINE AMINOTRANSFERASE 18 U/L (12-78); ALBUMIN 3.4 g/dL (3.4-5.0); ALKALINE PHOSPHATASE 73 U/L (46-116); ASPARTATE AMINOTRANSFERASE 76 U/L (15-37); BILIRUBIN,TOTAL 0.5 mg/dL (0.1-1.0); TOTAL PROTEIN, SERUM 7.9 g/dL (6.4-8.2)
[2022-07-02] MEDS ORDERED: LORazepam 2 MG/ML VIAL IM ONE (02:45)
[2022-07-02 04:17] LABS: APPEARANCE,URINE CLEAR (CLEAR); BILIRUBIN,URINE NEGATIVE (NEGATIVE); GLUCOSE, URINE (UA) NEGATIVE (NEGATIVE); KETONES,URINE NEGATIVE (NEGATIVE); LEUKOCYTE ESTERASE ,URINE SMALL (NEGATIVE); NITRATE,URINE POSITIVE (NEGATIVE); OCCULT BLOOD,URINE NEGATIVE (NEGATIVE); PH,URINE 7.5 (5.0-8.0); PROTEIN,URINE NEGATIVE (NEGATIVE); SPECIFIC GRAVITIY, URINE 1.013 (1.003-1.030); UROBILINOGEN,URINE <=1.0 mg/dL (<=1.0)
[2022-07-02 04:24] LABS: AMPHET/METH SCREEN,URINE NEGATIVE (NEGATIVE); BARBITURATE SCREEN, URINE NEGATIVE (NEGATIVE); BENZODIAZEPINES SCREEN,URINE NEGATIVE (NEGATIVE); CANNABINOID SCREEN,URINE NEGATIVE (NEGATIVE); COCAINE SCREEN,URINE NEGATIVE (NEGATIVE); METHADONE SCREEN, URINE NEGATIVE (NEGATIVE); OPIATE SCREEN,URINE NEGATIVE (NEGATIVE); PHENCYCLIDINE SCREEN,URINE NEGATIVE (NEGATIVE)
[2022-07-02 04:32] LABS: BACTERIA,URINE Many /HPF (None Seen); RBC,URINE None Seen /HPF (0-2); SQUAMOUS EPITHELIAL CELL,UR Few /LPF (None Seen)
[2022-07-02] MEDS ORDERED: CEPHALEXIN MONOHYDRATE 500 MG CAPSULE PO ONE (06:00)
[2022-07-02 08:05] VITALS: BP 110/58
== END 2022-07-02 09:45 | disposition home or self-care (01) ==
LOC: EMS 23:08
DX: F20.9 Schizophrenia, unspecified (principal); F31.9 Bipolar disorder, unspecified; E11.9 Type 2 diabetes mellitus without complications; E78.00 Pure hypercholesterolemia, unspecified; F17.210 Nicotine dependence, cigarettes, uncomplicated; F15.90 Other stimulant use, unspecified, uncomplicated; Z04.6 Encounter for general psychiatric examination, requested by authority
CPT/HCPCS: 99285; 80053; 81001; 85025; 36415; 87086; 87186; 70450; 72125; 51701; 96372; 80307 ×2; G0480; J2060

== ENCOUNTER 2022-07-04 07:22 | Emergency (ER) | payer OTHER ==
[~2022-07-04] VITALS: Ht 160 cm; Wt 65.9 kg
[2022-07-04 09:25] LABS: BASOPHILS % (AUTO) 0.4 % (0.0-2.0); EOSINOPHILS % (AUTO) 3.7 % (1.0-6.0); HEMATOCRIT 40.9 % (36-46); HEMOGLOBIN 13.1 g/dL (12.0-16.0); LYMPHOCYTES # (AUTO) 2.2 K/uL (1.0-4.8); LYMPHOCYTES % (AUTO) 21.6 % (22.0-44.0); MEAN CORPUSCULAR HEMOGLOBIN 27.7 pg (26.0-34.0); MEAN CORPUSCULAR HGB CONC 32.1 G/dL (31.0-37.0); MEAN CORPUSCULAR VOLUME 86 fL (80-100); MONOCYTES # (AUTO) 0.6 K/uL (0.1-1.0); MONOCYTES % (AUTO) 6.4 % (2.0-9.0); NEUTROPHILS # (AUTO) 6.8 K/uL (1.8-7.7); NEUTROPHILS % (AUTO) 67.9 % (40.0-70.0); PLATELET COUNT (AUTO) 410 K/uL (150-450); RED BLOOD CELL COUNT(AUTO) 4.75 MIL/uL (4.00-5.20); RED CELL DISTRIBUTION WIDTH 14.1 % (11.5-14.5)
[2022-07-04 09:30] LABS: ANION GAP 8 mmol/L (8-16); CARBON DIOXIDE 29 mmol/L (22-29); CHLORIDE 105 mmol/L (98-107); CREATININE 0.71 mg/dL (0.60-1.30); GLOMERULAR FILTR. RATE CALC > 60 mL/min (>60); GLUCOSE,RANDOM 68 mg/dL (70-110); POTASSIUM 4.2 mmol/L (3.5-5.1); SODIUM SERUM 142 mmol/L (136-145); UREA NITROGEN, BLOOD 13 mg/dL (7-18)
[2022-07-04 09:36] LABS: ALANINE AMINOTRANSFERASE 22 U/L (12-78); ALBUMIN 3.5 g/dL (3.4-5.0); ALKALINE PHOSPHATASE 74 U/L (46-116); ASPARTATE AMINOTRANSFERASE 49 U/L (15-37); BILIRUBIN,TOTAL 0.3 mg/dL (0.1-1.0); TOTAL PROTEIN, SERUM 8.3 g/dL (6.4-8.2)
[2022-07-04 11:52] VITALS: BP 126/82
[2022-07-04 15:36] LABS: GLUCOSE,POINT OF CARE 120 MG/DL (70-110)
== END 2022-07-04 17:30 | disposition home or self-care (01) ==
LOC: EMS 07:32
DX: E11.65 Type 2 diabetes mellitus with hyperglycemia (principal); F31.9 Bipolar disorder, unspecified; E78.00 Pure hypercholesterolemia, unspecified; F20.9 Schizophrenia, unspecified; F17.210 Nicotine dependence, cigarettes, uncomplicated; F15.90 Other stimulant use, unspecified, uncomplicated
CPT/HCPCS: 80053; 82962; 85025; 99283

== ENCOUNTER 2022-10-10 18:23 | Emergency (ER) | payer OTHER ==
[~2022-10-10] VITALS: Ht 160 cm; Wt 63.6 kg
[~2022-10-10 18:23] MED LIST changes: +BENZ2TAB71 PO; +HALO10TA21 PO; +NITR100C4 PO; -OLAN5TAB52 PO
[2022-10-10 18:29] VITALS: BP 112/81; PULSE 103; RESP 16; TEMP 98.5
[2022-10-10] MEDS ORDERED: METF-1211 PO (19:30)
[2022-10-10] MEDS ORDERED: BENZ2TAB71 PO (19:30)
[2022-10-10] MEDS ORDERED: HALO10TA21 PO (19:30)
[2022-10-10] MEDS ORDERED: BENZTROPINE MESYLATE 2 MG TABLET PO ONE (19:30)
[2022-10-10] MEDS ORDERED: HALOPERIDOL 5 MG TABLET PO ONE (19:30)
[2022-10-10] MEDS ORDERED: MetFORMIN HCL 500 MG ER TABLET PO ONE (19:30)
== END 2022-10-10 22:58 | disposition home or self-care (01) ==
LOC: EMS 18:24
DX: F20.0 Paranoid schizophrenia (principal); E11.9 Type 2 diabetes mellitus without complications; F31.9 Bipolar disorder, unspecified; E78.00 Pure hypercholesterolemia, unspecified; F17.210 Nicotine dependence, cigarettes, uncomplicated; F15.90 Other stimulant use, unspecified, uncomplicated
CPT/HCPCS: 82962; 99283

== ENCOUNTER 2023-04-01 14:52 | Emergency (ER) | payer OTHER ==
[~2023-04-01] VITALS: Ht 160 cm; Wt 56.8 kg
[~2023-04-01 14:52] MED LIST changes: -NITR100C4 PO
[2023-04-01 15:31] LABS: COVID AG,FIA SOURCE NASAL SWAB
[2023-04-01 15:46] LABS: BASOPHILS % (AUTO) 0.9 % (0.0-2.0); HEMATOCRIT 40.3 % (36-46); HEMOGLOBIN 13.1 g/dL (12.0-16.0); LYMPHOCYTES % (AUTO) 22.8 % (22.0-44.0); MEAN CORPUSCULAR HGB CONC 32.4 G/dL (31.0-37.0); MEAN CORPUSCULAR VOLUME 86 fL (80-100); MONOCYTES # (AUTO) 0.6 K/uL (0.1-1.0); MONOCYTES % (AUTO) 4.4 % (2.0-9.0); NEUTROPHILS # (AUTO) 8.8 K/uL (1.8-7.7); NEUTROPHILS % (AUTO) 67.9 % (40.0-70.0); PLATELET COUNT (AUTO) 461 K/uL (150-450); RED BLOOD CELL COUNT(AUTO) 4.67 MIL/uL (4.00-5.20); RED CELL DISTRIBUTION WIDTH 13.7 % (11.5-14.5)
[2023-04-01 15:51] LABS: ANION GAP 8 mmol/L (8-16); CARBON DIOXIDE 29 mmol/L (22-29); CHLORIDE 100 mmol/L (98-107); CREATININE 0.82 mg/dL (0.60-1.30); GLOMERULAR FILTR. RATE CALC > 60 mL/min (>60); GLUCOSE,RANDOM 258 mg/dL (70-110); SODIUM SERUM 137 mmol/L (136-145); UREA NITROGEN, BLOOD 18 mg/dL (7-18)
[2023-04-01 15:58] LABS: ALANINE AMINOTRANSFERASE 13 U/L (12-78); ALBUMIN 3.5 g/dL (3.4-5.0); ALKALINE PHOSPHATASE 125 U/L (46-116); ASPARTATE AMINOTRANSFERASE 19 U/L (15-37); BILIRUBIN,TOTAL 0.3 mg/dL (0.1-1.0); TOTAL PROTEIN, SERUM 7.9 g/dL (6.4-8.2)
[2023-04-01 16:04] LABS: SARS-COV2 (COVID) ANTIGEN,FIA Negative (Negative)
[2023-04-01 16:23] LABS: ALCOHOL, BLOOD (SERUM) < 3 mg/dL (0-10)
[2023-04-01 20:55] LABS: PH,URINE DRUG SCREEN 6.5 (5.0-8.0)
[2023-04-01] MEDS: OLANZapine 5 MG RAPDIS TABLET PO ONE (20:58)
[2023-04-01 21:00] LABS: ALCOHOL, URINE DRUG SCREEN NEGATIVE (NEGATIVE); AMPHET/METH SCREEN,URINE POSITIVE (NEGATIVE); BARBITURATE SCREEN, URINE NEGATIVE (NEGATIVE); BENZODIAZEPINES SCREEN,URINE NEGATIVE (NEGATIVE); CANNABINOID SCREEN,URINE NEGATIVE (NEGATIVE); COCAINE SCREEN,URINE NEGATIVE (NEGATIVE); METHADONE SCREEN, URINE NEGATIVE (NEGATIVE); OPIATE SCREEN,URINE NEGATIVE (NEGATIVE); PHENCYCLIDINE SCREEN,URINE NEGATIVE (NEGATIVE)
[2023-04-01 21:19] VITALS: BP 148/78; PULSE 101; RESP 15; TEMP 98.2
== END 2023-04-01 21:59 | disposition home or self-care (01) ==
LOC: EMS 14:53
DX: F15.10 Other stimulant abuse, uncomplicated (principal); F20.9 Schizophrenia, unspecified; F31.9 Bipolar disorder, unspecified; E11.9 Type 2 diabetes mellitus without complications; E78.00 Pure hypercholesterolemia, unspecified; F17.210 Nicotine dependence, cigarettes, uncomplicated; Z20.822 Contact with and (suspected) exposure to COVID-19
CPT/HCPCS: 99283; 87426; 80053; 84702; 85025; 36415; 80307; G0480

== ENCOUNTER 2024-06-29 15:08 | Emergency (ER) | payer MEDICAID ==
[~2024-06-29] VITALS: Ht 162.6 cm; Wt 59.1 kg
[~2024-06-29 15:08] MED LIST changes: +BENZ-247 PO; -BENZ2TAB71 PO; +ESCI-8 PO; +HALO5TAB23 PO
[2024-06-29 15:22] VITALS: BP 115/79; PULSE 120; RESP 16; TEMP 98.4; O2SAT 99
== END 2024-06-29 18:46 | disposition left against medical advice (07) ==
LOC: EMS 15:08
DX: H66.90 Otitis media, unspecified, unspecified ear (principal); Z53.21 Procedure and treatment not carried out due to patient leaving prior to being seen by health care provider

== ENCOUNTER 2024-09-27 20:48 | Inpatient (IN) | payer MEDICAID, OTHER ==
[~2024-09-27] VITALS: Ht 162.6 cm; Wt 70.0 kg
[2024-09-27 21:21] LABS: PLATELET COUNT (AUTO) 358 K/uL (150-450); RED BLOOD CELL COUNT(AUTO) 4.55 MIL/uL (4.00-5.20); RED CELL DISTRIBUTION WIDTH 14.1 % (11.5-14.5); WHITE BLOOD COUNT (AUTO) 9.0 K/uL (4.5-11.0)
[2024-09-27 21:28] LABS: CALCIUM, TOTAL 8.2 mg/dL (8.8-10.5); CREATININE 1.08 mg/dL (0.60-1.30); GLOMERULAR FILTR. RATE CALC 54.0 mL/min (>60); GLUCOSE,RANDOM 249.0 mg/dL (70-110); SODIUM SERUM 139.0 mmol/L (136-145); UREA NITROGEN, BLOOD 10.0 mg/dL (7-18)
[2024-09-27 22:28] LABS: COVID AG,FIA SOURCE NASAL SWAB
[2024-09-27 22:45] LABS: SARS-COV2 (COVID) ANTIGEN,FIA Negative (Negative)
[2024-09-28 00:24] VITALS: O2SAT 100
[2024-09-28 00:45] VITALS: BP 130/76; PULSE 93; RESP 19; TEMP 97.8; O2SAT 98
[2024-09-28] MEDS ORDERED: ONDANSETRON 4 MG TABLET PO PRN (01:30)
[2024-09-28] MEDS ORDERED: LOPERAMIDE HCL 2 MG CAPSULE PO PRN (01:30)
[2024-09-28] MEDS ORDERED: MAG HYDROX/ALUMINUM HYD/SIMETH ES 30 ML SUSPENSION UDCUP PO PRN (01:30)
[2024-09-28] MEDS ORDERED: OMEPRAZOLE 20 MG CAPSULE PO PRN (01:30)
[2024-09-28] MEDS ORDERED: BACITRACIN 28 GM OINTMENT TP PRN (01:30)
[2024-09-28] MEDS ORDERED: DOCUSATE SODIUM 100 MG CAPSULE PO PRN (01:30)
[2024-09-28] MEDS ORDERED: ALBUTEROL SULFATE HFA 90 MCG/PUFF 8 GM INHALER IH PRN (01:30)
[2024-09-28] MEDS ORDERED: MAGNESIUM HYDROXIDE SUSPENSION 30 ML UDCUP PO PRN (01:30)
[2024-09-28] MEDS ORDERED: IBUPROFEN 600 MG TABLET PO PRN (01:30)
[2024-09-28] MEDS ORDERED: ACETAMINOPHEN 325 MG TABLET PO PRN (01:30)
[2024-09-28] MEDS ORDERED: PETROLATUM,WHITE 28 GM JELLY TP PRN (01:30)
[2024-09-28] MEDS ORDERED: GLUCAGON,HUMAN RECOMBINANT 1 MG VIAL IM PRN (01:45)
[2024-09-28] MEDS ORDERED: PNEUMOCOCCAL VACCINE POLYVALENT 0.5 ML SYRINGE [PPSV23] IM. ONE (03:15)
[2024-09-28] MEDS: INSULIN LISPRO 100 UNITS/ML SQ PRN (07:09)
[2024-09-28 07:35] LABS: GLUCOMETER DEV NAME(LOC) 3EX.2; GLUCOSE,POINT OF CARE 167 MG/DL (70-110)
[2024-09-28 09:33] VITALS: BP 91/61; PULSE 94; RESP 18; TEMP 97.6; O2SAT 98
[2024-09-28 12:01] LABS: GLUCOMETER DEV NAME(LOC) 3E.I 2; GLUCOSE,POINT OF CARE 174 MG/DL (70-110)
[2024-09-28 18:01] LABS: GLUCOMETER DEV NAME(LOC) 3E.I 2; GLUCOSE,POINT OF CARE 127 MG/DL (70-110)
[2024-09-28 18:44] LABS: APPEARANCE,URINE CLEAR (CLEAR); GLUCOSE, URINE (UA) >=1000 mg/dL (NEGATIVE); LEUKOCYTE ESTERASE ,URINE TRACE (NEGATIVE); NITRATE,URINE NEGATIVE (NEGATIVE); OCCULT BLOOD,URINE LARGE (NEGATIVE); PH,URINE DRUG SCREEN 6.0 (5.0-8.0); SPECIFIC GRAVITIY, URINE 1.028 (1.003-1.030)
[2024-09-28 18:50] LABS: ALCOHOL, URINE DRUG SCREEN NEGATIVE (NEGATIVE); AMPHET/METH SCREEN,URINE NEGATIVE (NEGATIVE); BARBITURATE SCREEN, URINE NEGATIVE (NEGATIVE); CANNABINOID SCREEN,URINE NEGATIVE (NEGATIVE); COCAINE SCREEN,URINE NEGATIVE (NEGATIVE); METHADONE SCREEN, URINE NEGATIVE (NEGATIVE)
[2024-09-28 19:08] LABS: SQUAMOUS EPITHELIAL CELL,UR Few /LPF (None Seen)
[2024-09-28 20:14] VITALS: BP 135/80; PULSE 97; RESP 18; TEMP 97.6; O2SAT 97
[2024-09-28 20:16] LABS: GLUCOMETER DEV NAME(LOC) 3EX.2; GLUCOSE,POINT OF CARE 179 MG/DL (70-110)
[2024-09-28 21:56] LABS: GLUCOMETER DEV NAME(LOC) 3E.I 2; GLUCOSE,POINT OF CARE 172 MG/DL (70-110)
[2024-09-29 06:25] LABS: GLUCOMETER DEV NAME(LOC) 3E.I 2; GLUCOSE,POINT OF CARE 154 MG/DL (70-110)
[2024-09-29 06:50] LABS: PLATELET COUNT (AUTO) 292 K/uL (150-450); RED BLOOD CELL COUNT(AUTO) 4.19 MIL/uL (4.00-5.20); RED CELL DISTRIBUTION WIDTH 14.0 % (11.5-14.5); WHITE BLOOD COUNT (AUTO) 7.5 K/uL (4.5-11.0)
[2024-09-29 07:22] LABS: ASPARTATE AMINOTRANSFERASE 10 U/L (15-37); CALCIUM, TOTAL 7.8 mg/dL (8.8-10.5); CHOL/HDL RATIO 3.2 (3.9-5.7); CREATININE 0.58 mg/dL (0.60-1.30); GLOMERULAR FILTR. RATE CALC > 60 mL/min (>60); GLUCOSE,RANDOM 157 mg/dL (70-110); LDL CHOL (CALC.) 68 mg/dL (0-130); PHOSPHORUS 3.1 mg/dL (2.5-4.9); SODIUM SERUM 138 mmol/L (136-145); TOTAL PROTEIN, SERUM 5.7 g/dL (6.4-8.2); UREA NITROGEN, BLOOD 8 mg/dL (7-18)
[2024-09-29 12:01] LABS: GLUCOMETER DEV NAME(LOC) 3E.I 2; GLUCOSE,POINT OF CARE 132 MG/DL (70-110)
[2024-09-29 13:25] VITALS: BP 100/71; PULSE 85; RESP 18; TEMP 98.4; O2SAT 99
[2024-09-29 17:55] LABS: GLUCOMETER DEV NAME(LOC) 3E.I 2; GLUCOSE,POINT OF CARE 151 MG/DL (70-110)
[2024-09-29 20:05] VITALS: BP 123/77; PULSE 86; RESP 18; TEMP 98.6; O2SAT 100
[2024-09-29 20:25] LABS: GLUCOMETER DEV NAME(LOC) 3E.I 2; GLUCOSE,POINT OF CARE 122 MG/DL (70-110)
[2024-09-29] MEDS: INSULIN GLARGINE,HUM.REC.ANLOG 100 UNITS/ML SQ SCH (20:40)
[2024-09-30 05:56] LABS: GLUCOMETER DEV NAME(LOC) 3EX.2; GLUCOSE,POINT OF CARE 107 MG/DL (70-110)
[2024-09-30 11:02] VITALS: BP 121/71; PULSE 80; RESP 18; TEMP 98.6; O2SAT 100
[2024-09-30 17:26] LABS: GLUCOMETER DEV NAME(LOC) 3E.I 2; GLUCOSE,POINT OF CARE 169 MG/DL (70-110)
[2024-09-30 20:10] LABS: GLUCOMETER DEV NAME(LOC) 3E.I 2; GLUCOSE,POINT OF CARE 128 MG/DL (70-110)
[2024-09-30 21:10] VITALS: BP 104/69; PULSE 98; RESP 18; TEMP 98.5; O2SAT 98
[2024-09-30] MEDS: BENZOCAINE/MENTHOL [CEPACOL] LOZENGE PO PRN (22:21)
[2024-09-30] MEDS: ZOLPIDEM TARTRATE 10 MG TABLET PO PRN (22:21)
[2024-10-01 05:46] LABS: GLUCOMETER DEV NAME(LOC) 3E.I 2; GLUCOSE,POINT OF CARE 133 MG/DL (70-110)
[2024-10-01 10:48] VITALS: BP 101/68; PULSE 73; RESP 18; TEMP 97.7; O2SAT 98
[2024-10-01 11:50] LABS: GLUCOMETER DEV NAME(LOC) 3E.I 2; GLUCOSE,POINT OF CARE 128 MG/DL (70-110)
[2024-10-01 16:41] LABS: GLUCOMETER DEV NAME(LOC) 3E.I 2; GLUCOSE,POINT OF CARE 140 MG/DL (70-110)
[2024-10-01 20:00] VITALS: BP 129/90; PULSE 100; RESP 18; TEMP 97.1; O2SAT 100
[2024-10-01 22:01] LABS: GLUCOMETER DEV NAME(LOC) 3E.I 2; GLUCOSE,POINT OF CARE 105 MG/DL (70-110)
[2024-10-02 06:36] LABS: GLUCOMETER DEV NAME(LOC) 3E.I 2; GLUCOSE,POINT OF CARE 95 MG/DL (70-110)
[2024-10-02 08:30] VITALS: RESP 18; TEMP 98
[2024-10-02 17:26] LABS: GLUCOMETER DEV NAME(LOC) 3EX.2; GLUCOSE,POINT OF CARE 220 MG/DL (70-110)
[2024-10-02 20:00] VITALS: BP 102/71; PULSE 86; RESP 18; TEMP 98.1; O2SAT 100
[2024-10-02 20:36] LABS: GLUCOMETER DEV NAME(LOC) 3E.I 2; GLUCOSE,POINT OF CARE 88 MG/DL (70-110)
[2024-10-03 06:50] LABS: GLUCOMETER DEV NAME(LOC) 3EX.2; GLUCOSE,POINT OF CARE 106 MG/DL (70-110)
[2024-10-03 11:40] LABS: GLUCOMETER DEV NAME(LOC) 3EX.2; GLUCOSE,POINT OF CARE 103 MG/DL (70-110)
[2024-10-03 16:41] VITALS: BP 95/67; PULSE 85; RESP 16; TEMP 98; O2SAT 98
[2024-10-03 17:26] LABS: GLUCOMETER DEV NAME(LOC) 3EX.2; GLUCOSE,POINT OF CARE 223 MG/DL (70-110)
[2024-10-03 20:13] VITALS: BP 105/70; PULSE 94; RESP 18; TEMP 98.1; O2SAT 99
[2024-10-03 20:30] LABS: GLUCOMETER DEV NAME(LOC) 3EX.2; GLUCOSE,POINT OF CARE 98 MG/DL (70-110)
[2024-10-04 06:35] LABS: GLUCOMETER DEV NAME(LOC) 3EX.2; GLUCOSE,POINT OF CARE 164 MG/DL (70-110)
[2024-10-04 09:53] VITALS: BP 97/64; PULSE 90; RESP 16; TEMP 97.3; O2SAT 98
[2024-10-04 11:21] LABS: GLUCOMETER DEV NAME(LOC) 3EX.2; GLUCOSE,POINT OF CARE 120 MG/DL (70-110)
[2024-10-04] MEDS ORDERED: RISP-32 PO (15:41)
== END 2024-10-04 16:15 | disposition home or self-care (01) | DRG 750 ==
LOC: EMS 20:48 → 3EI 09-28 00:26 → EMS 09-28 00:28 → 3EI 09-28 00:28
PROVIDERS: ADMIT Psychiatry & Neurology Psychiatry; ATTEND Psychiatry & Neurology Psychiatry
DX: F25.9 Schizoaffective disorder, unspecified (principal); E11.65 Type 2 diabetes mellitus with hyperglycemia; K59.00 Constipation, unspecified; F15.90 Other stimulant use, unspecified, uncomplicated; F41.9 Anxiety disorder, unspecified; G47.00 Insomnia, unspecified; E78.5 Hyperlipidemia, unspecified; Z20.822 Contact with and (suspected) exposure to COVID-19; F31.9 Bipolar disorder, unspecified; Z87.891 Personal history of nicotine dependence; Z79.899 Other long term (current) drug therapy
CPT/HCPCS: 80048; 80053; 80061; 80307; 81001; 82962; 83036; 83735; 84100; 84443; 85025; 87086; 99285; G0480; J1815; J3535

== ENCOUNTER 2024-10-09 21:17 | Emergency (ER) | payer MEDICAID, OTHER ==
[~2024-10-09] VITALS: Ht 162.6 cm; Wt 45.5 kg
[~2024-10-09 21:17] MED LIST changes: -BENZ-247 PO; -ESCI-8 PO; -HALO10TA21 PO; -HALO5TAB23 PO; +RISP-32 PO
[2024-10-09 21:41] VITALS: TEMP 98
[2024-10-09 22:36] LABS: APPEARANCE,URINE HAZY (CLEAR); GLUCOSE, URINE (UA) >=1000 mg/dL (NEGATIVE); LEUKOCYTE ESTERASE ,URINE LARGE (NEGATIVE); NITRATE,URINE NEGATIVE (NEGATIVE); OCCULT BLOOD,URINE TRACE (NEGATIVE); SPECIFIC GRAVITIY, URINE 1.032 (1.003-1.030)
[2024-10-09 22:52] LABS: SQUAMOUS EPITHELIAL CELL,UR Few /LPF (None Seen)
[2024-10-09 22:53] LABS: URINALYSIS COMMENT Moderate Trich. seen
[2024-10-10] MEDS ORDERED: CEFU250T87 PO (00:02)
[2024-10-10] MEDS ORDERED: METR500 PO (00:02)
[2024-10-10 00:23] VITALS: BP 126/73; PULSE 84; RESP 18; O2SAT 99
== END 2024-10-10 01:57 | disposition home or self-care (01) ==
LOC: EMS 21:17
DX: A59.00 Urogenital trichomoniasis, unspecified (principal); N39.0 Urinary tract infection, site not specified; I10 Essential (primary) hypertension; E11.9 Type 2 diabetes mellitus without complications; E78.00 Pure hypercholesterolemia, unspecified; F20.9 Schizophrenia, unspecified; F17.210 Nicotine dependence, cigarettes, uncomplicated; F15.90 Other stimulant use, unspecified, uncomplicated; F31.9 Bipolar disorder, unspecified; Z79.899 Other long term (current) drug therapy
CPT/HCPCS: 81001; 87086; 99283

== ENCOUNTER 2024-10-29 12:21 | Emergency (ER) | payer OTHER ==
[~2024-10-29] VITALS: Ht 160 cm; Wt 52.3 kg
[~2024-10-29 12:21] MED LIST changes: +CEFU250T87 PO; +METR500 PO
[2024-10-29 12:29] VITALS: TEMP 98.6
[2024-10-29 12:45] LABS: GLUCOMETER DEV NAME(LOC) ER.7; GLUCOSE,POINT OF CARE 354 MG/DL (70-110)
[2024-10-29 13:30] LABS: PLATELET COUNT (AUTO) 296 K/uL (150-450); RED BLOOD CELL COUNT(AUTO) 4.22 MIL/uL (4.00-5.20); RED CELL DISTRIBUTION WIDTH 13.9 % (11.5-14.5); WHITE BLOOD COUNT (AUTO) 8.3 K/uL (4.5-11.0)
[2024-10-29 13:40] LABS: APPEARANCE,URINE CLEAR (CLEAR); GLUCOSE, URINE (UA) >=1000 mg/dL (NEGATIVE); LEUKOCYTE ESTERASE ,URINE LARGE (NEGATIVE); NITRATE,URINE NEGATIVE (NEGATIVE); OCCULT BLOOD,URINE NEGATIVE (NEGATIVE); PH,URINE DRUG SCREEN 6.0 (5.0-8.0); SPECIFIC GRAVITIY, URINE 1.033 (1.003-1.030)
[2024-10-29 13:40] LABS: CALCIUM, TOTAL 7.6 mg/dL (8.8-10.5); CREATININE 0.83 mg/dL (0.60-1.30); GLOMERULAR FILTR. RATE CALC > 60 mL/min (>60); GLUCOSE,RANDOM 344 mg/dL (70-110); SODIUM SERUM 135 mmol/L (136-145); UREA NITROGEN, BLOOD 9 mg/dL (7-18)
[2024-10-29 13:44] LABS: ALCOHOL, BLOOD (SERUM) < 3 mg/dL (0-10)
[2024-10-29 13:46] LABS: ALCOHOL, URINE DRUG SCREEN NEGATIVE (NEGATIVE); AMPHET/METH SCREEN,URINE NEGATIVE (NEGATIVE); BARBITURATE SCREEN, URINE NEGATIVE (NEGATIVE); CANNABINOID SCREEN,URINE NEGATIVE (NEGATIVE); COCAINE SCREEN,URINE NEGATIVE (NEGATIVE); METHADONE SCREEN, URINE NEGATIVE (NEGATIVE)
[2024-10-29 14:00] LABS: ACETONE,BLOOD NEGATIVE (NEGATIVE)
[2024-10-29 14:25] LABS: SQUAMOUS EPITHELIAL CELL,UR Few /LPF (None Seen)
[2024-10-29] MEDS ORDERED: CEPH-558 PO (15:05)
[2024-10-29] MEDS: CEPHALEXIN MONOHYDRATE 500 MG CAPSULE PO ONE (15:37)
[2024-10-29 15:45] VITALS: BP 120/70; PULSE 95; RESP 16; O2SAT 100
== END 2024-10-29 16:39 | disposition home or self-care (01) ==
LOC: EMS 12:21
DX: N39.0 Urinary tract infection, site not specified (principal); R05.9 Cough, unspecified; B34.9 Viral infection, unspecified; R09.81 Nasal congestion; E11.9 Type 2 diabetes mellitus without complications; E78.00 Pure hypercholesterolemia, unspecified; F20.9 Schizophrenia, unspecified; F31.9 Bipolar disorder, unspecified; F17.210 Nicotine dependence, cigarettes, uncomplicated; F15.90 Other stimulant use, unspecified, uncomplicated
CPT/HCPCS: 99283; 80048; 81001; 82009; 82962; 84703; 85025; 87086; 36415; 80307; G0480

== ENCOUNTER 2024-11-11 20:33 | Emergency (ER) | payer OTHER ==
[~2024-11-11] VITALS: Ht 160 cm; Wt 90.0 kg
[~2024-11-11 20:33] MED LIST changes: -CEFU250T87 PO; +CEPH-558 PO; -METF-1211 PO; -METR500 PO; -RISP-32 PO
[2024-11-11 23:50] LABS: PLATELET COUNT (AUTO) 425 K/uL (150-450); RED BLOOD CELL COUNT(AUTO) 4.23 MIL/uL (4.00-5.20); RED CELL DISTRIBUTION WIDTH 14.7 % (11.5-14.5); WHITE BLOOD COUNT (AUTO) 7.7 K/uL (4.5-11.0)
[2024-11-11 23:58] LABS: CALCIUM, TOTAL 8.6 mg/dL (8.8-10.5); CREATININE 0.70 mg/dL (0.60-1.30); GLOMERULAR FILTR. RATE CALC > 60 mL/min (>60); GLUCOSE,RANDOM 188 mg/dL (70-110); SODIUM SERUM 137 mmol/L (136-145); UREA NITROGEN, BLOOD 20 mg/dL (7-18)
[2024-11-12 02:20] VITALS: BP 124/68; PULSE 75; RESP 17; TEMP 98.3; O2SAT 98
== END 2024-11-12 03:32 | disposition left against medical advice (07) ==
LOC: EMS 20:33
DX: F20.0 Paranoid schizophrenia (principal); E11.9 Type 2 diabetes mellitus without complications; E78.00 Pure hypercholesterolemia, unspecified; F31.9 Bipolar disorder, unspecified; F17.210 Nicotine dependence, cigarettes, uncomplicated; F15.90 Other stimulant use, unspecified, uncomplicated; Z79.899 Other long term (current) drug therapy
CPT/HCPCS: 99283; 80048; 85025; 36415; G0480

== ENCOUNTER 2024-11-12 08:28 | Emergency (ER) | payer OTHER ==
[~2024-11-12] VITALS: Ht 157.5 cm; Wt 60.9 kg
[2024-11-12 08:34] VITALS: BP 131/75; PULSE 88; RESP 16; TEMP 98.1; O2SAT 98
[2024-11-12] MEDS: POVIDONE-IODINE 10% 15 ML SOLUTION UD TP ONE (09:08)
== END 2024-11-12 09:57 | disposition home or self-care (01) ==
LOC: EMS 08:29
DX: M79.671 Pain in right foot (principal); M79.672 Pain in left foot; E11.9 Type 2 diabetes mellitus without complications; E78.00 Pure hypercholesterolemia, unspecified; F20.9 Schizophrenia, unspecified; F31.9 Bipolar disorder, unspecified; F17.210 Nicotine dependence, cigarettes, uncomplicated; F15.90 Other stimulant use, unspecified, uncomplicated; Z59.00 Homelessness unspecified; Z79.899 Other long term (current) drug therapy
CPT/HCPCS: 82962; 99282